=== PATIENT | male | born 1970 | race Caucasian/White ===

== ENCOUNTER 2017-04-07 13:53 | Emergency (ER) ==
[~2017-04-07] VITALS: Ht 182.9 cm; Wt 83.9 kg
[2017-04-07] MEDS ORDERED: LORAZEPAM 0.5 MG TAB PO SCH (17:30)
[2017-04-07] MEDS ORDERED: LORAZEPAM 1 MG TAB PO ONE (17:30)
[2017-04-07 17:40] VITALS: BP 133/91
== END 2017-04-07 17:57 | disposition home or self-care (01) ==
LOC: ER 17:11
DX: F41.9 Anxiety disorder, unspecified (principal); F31.9 Bipolar disorder, unspecified
CPT/HCPCS: 99283

== ENCOUNTER 2018-02-09 23:26 | Emergency (ER) | payer SELFPAY ==
[~2018-02-09] VITALS: Ht 182.9 cm; Wt 83.9 kg
--- OUTSIDE RECORDS SUMMARY | 2018-02-09 23:28 | XMS REPORT | Clinical Summary ---
Author Author [facility] Organization [facility] Address Unknown Phone Unavailable Care Team Providers Care Bond Manager Name Role Phone Asked, No Pcp PCP Unavailable Allergies Comments Active Allergy Reactions Severity Noted Date Penicillins 08/23/2017 Medications End Date Status Medication Sig Dispensed Refills Start Date Active paliperidone (INVEGA Take by 0 ORAL) mouth. Active indomethacin (INDOCIN) 50 Take 50 mg by 0 MG capsule mouth 2 (two) times a day with meals. Active traZODone (DESYREL) 50 MG Take 50 mg by 0 tablet mouth nightly. Active Problems Not on file Encounters Care Team Description Date Type Specialty 12/15/2017 Emergency Emergency Medicine 11/21/2017 Emergency Emergency Medicine Jeff Peters MD Dizziness (Primary Dx); Homelessness 08/23/2017 Emergency Emergency Medicine Jeff Peters MD Sprain of left knee, unspecified ligament, initial encounter (Primary Dx); Acute pain of both knees 08/23/2017 Emergency Emergency Medicine after 02/08/2017 Social History Date Tobacco Use Types Packs/Day Years Used Current Every Day Smoker Cigarettes, 0.5 Cigars Smokeless Tobacco: Never Used Alcohol Use Drinks/Week oz/Week Comments Yes socially Sex Assigned at Date Recorded Not on file Industry Job Start Date Occupation Not on file Not on file Not on file Travel End Travel History Travel Start No recent travel history available. Last Filed Vital Signs Time Taken Vital Sign Reading 12/15/2017 1:18 AM CDT Blood Pressure 94/56 12/15/2017 1:18 AM CDT Pulse 63 12/15/2017 1:18 AM CDT Temperature 36.9 C (98.5 F) 12/15/2017 1:18 AM CDT Respiratory Rate 16 12/15/2017 1:18 AM CDT Oxygen Saturation 95% - Inhaled Oxygen - Concentration 08/23/2017 12:51 PM CDT Weight 83.9 kg (185 lb) 12/15/2017 1:15 AM CDT Height 175.3 cm (5' 9") 08/23/2017 12:51 PM CDT Body Mass Index 27.32 Plan of Treatment Health Maintenance Due Date Last Done Comments INFLUENZA VACCINE 10/29/2017 Procedures Comments Procedure Name Priority Date/Time Associated Diagnosis XR CHEST 2 VW STAT 12/15/2017 4:16 AM CDT ECG 12-LEAD STAT 12/15/2017 1:36 AM CDT ZZESTIMATED GFR STAT 08/23/2017 1:40 PM CDT HC COMPLETE BLD COUNT STAT 08/23/2017 W/AUTO DIFF 1:40 PM CDT TROPONIN STAT 08/23/2017 1:40 PM CDT BASIC METABOLIC PANEL STAT 08/23/2017 1:40 PM CDT ECG 12-LEAD STAT 08/23/2017 1:21 PM CDT after 02/08/2017 Results * XR Chest 2 Vw (12/15/2017 4:16 AM CDT) Narrative Performed At EXAMINATION: XR CHEST 2 VW [facility] CLINICAL HISTORY: Chest painnormal ekg COMPARISON:None. IMPRESSION: The lungs are clear. No pleural effusion or pneumothorax. The cardiomediastinal silhouette is normal. No acute osseous abnormalities. [facility]-[id number] Procedure Note Hm Interface, Radiology Results Incoming - 12/15/2017 4:21 AM CDT EXAMINATION: XR CHEST 2 VW CLINICAL HISTORY: Chest pain normal ekg COMPARISON: None. IMPRESSION: The lungs are clear. No pleural effusion or pneumothorax. The cardiomediastinal silhouette is normal. No acute osseous abnormalities. [facility]-[id number] Performing Organization Address City/State/Zipcode Phone Number [facility] [address] [place] [address] * ECG 12 lead (12/15/2017 1:36 AM CDT) Only the most recent of 2 results within the time period is included. Ventricular rate 70 [facility] Atrial rate 70 [facility] NC interval 150 [facility] QRSD interval 92 [facility] QT interval 392 [facility] QTC interval 423 [facility] P axis 1 42 [facility] QRS axis 1 2 [facility] T wave axis 46 [facility] EKG impression Normal sinus rhythm-Normal [facility] ECG-In automated comparison with ECG of 23-AUG-2017 13:21,-No significant change was found- Performing Organization Address City/[facility]/Zipcode Phone Number [facility] [address] [place] [address] * Estimated GFR (08/23/2017 1:40 PM CDT) GFR Non Af Amer 80 mL/min/1.73 m2 [facility] [place]OMIC MEDICINE GFR Af Amer >90 mL/min/1.73 m2 [facility] [place] Comment: PATHOLOGY AND Chronic kidney disease: <60 GENOMIC MEDICINE mL/min/1.73m2 Kidney failure: <15 mL/min/1.73m2 The estimated GFR is calculated from the IDMS-traceable Modification of Diet in Renal Disease Equation. The accuracy of the calculation is poor when the creatinine is normal. Calculated values >90 mL/min/1.73m2 are not reported. This equation has not been validated in children (<18 years), women, the elderly (>70 years), or ethnic groups other than Caucasians and Americans. Specimen Plasma specimen Performing Organization Address [facility] Phone Number [place] [phone] [place] [address] PATHOLOGY AND [employer] [facility] * Troponin (08/23/2017 1:40 PM CDT) Troponin <0.01 0.00 - 0.60 ng/mL [facility] [place] Comment: PATHOLOGY AND 0.11 - 1.49 GENOMIC MEDICINE ng/mlMay indicate increased risk of acute coronary syndrome. >=1.5 ng/ml Consistent with acute myocardial infarction. The diagnostic value of a single normal or non-diagnostic result is questionable.Serial samples at 2-6 hour intervals are required to rule out acute myocardial injury. Specimen Plasma specimen Performing Organization Address City/[facility] Phone Number [facility] [place] [address] [place] [address] PATHOLOGY AND GENOMIC MEDICINE * CBC with platelet and differential (08/23/2017 1:40 PM CDT) WBC 8.8 4.2 - 11.0 k/uL [facility] [place]OLOGY AND GENOMIC MEDICINE RBC 3.93 (L) 4.04 - 5.86 m/uL [facility] [place]OLOGY AND GENOMIC MEDICINE HGB 12.2 (L) 13.0 - 17.3 g/dL [facility] [place]OLOGY AND GENOMIC MEDICINE HCT 36.0 34.0 - 45.0 % [facility] [place]OLOGY AND GENOMIC MEDICINE MCV 91.6 80.0 - 98.0 fL [facility] [place]OLOGY AND GENOMIC MEDICINE MCH 31.0 27.0 - 34.0 pg [facility] [place]OLOGY AND GENOMIC MEDICINE MCHC 33.9 31.5 - 36.5 g/dL [facility] [place] PATHOLOGY AND GENOMIC MEDICINE RDW - SD 42.4 37.0 - 51.0 fL [facility] [place]OLOGY AND GENOMIC MEDICINE MPV 8.9 7.4 - 10.4 fL [facility] [place]OLOGY AND GENOMIC MEDICINE Platelet count 224 150 - 400 k/uL [facility] [place]OLOGY AND GENOMIC MEDICINE Nucleated RBC 0.00 /100 WBC [facility] [place] PATHOLOGY AND GENOMIC MEDICINE Neutrophils 66.4 (H) 36.0 - 66.0 % [facility] [place]OLOGY AND GENOMIC MEDICINE Lymphocytes 21.0 (L) 24.0 - 44.0 % [facility] [place]OLOGY AND GENOMIC MEDICINE Monocytes 10.3 (H) 0.0 - 6.0 % [facility] [place]OLOGY AND GENOMIC MEDICINE Eosinophils 1.8 0.0 - 6.0 % [facility] [place] [facility] PATHOLOGY AND GENOMIC MEDICINE Basophils 0.3 0.0 - 1.2 % [facility] [place]OLOGY AND GENOMIC MEDICINE Immature granulocytes 0.2 0.0 - 1.0 % [facility] [place]OLOGY AND GENOMIC MEDICINE Specimen Blood Performing Organization Address City/State/Zipcode Phone Number [facility] [address] [place] [address] PATHOLOGY AND GENOMIC MEDICINE * Basic metabolic panel (08/23/2017 1:40 PM CDT) Sodium 134 (L) 135 - 150 mEq/L [facility] [place]OLOGY AND GENOMIC MEDICINE Potassium 4.0 3.5 - 5.0 mEq/L [facility] [place] PATHOLOGY AND GENOMIC MEDICINE Chloride 96 (L) 100 - 109 mEq/L [facility] [place] PATHOLOGY AND GENOMIC MEDICINE CO2 28 24 - 32 mmol/L [facility] DEPARTMENT OF PATHOLOGY AND GENOMIC MEDICINE Anion gap 10@ANIO 7 - 15 mEq/L [facility] [place] [facility] PATHOLOGY AND GENOMIC MEDICINE BUN 9 7 - 18 mg/dL [facility] [place]OLOGY AND GENOMIC MEDICINE Creatinine 1.0 0.8 - 1.5 mg/dL [facility] [place]OLOGY AND GENOMIC MEDICINE Glucose 105 (H) 65 - 100 mg/dL [facility] [place]OLOGY AND GENOMIC MEDICINE Calcium 9.3 8.6 - 10.7 mg/dL [facility] [place]OLOGY AND GENOMIC MEDICINE Specimen Plasma specimen Performing Organization Address City/State/Zipcode Phone Number [facility] [place] [address] [place] [address] PATHOLOGY AND GENOMIC MEDICINE after 02/08/2017 Advance Directives Patient has advance care planning documents on file. For more information, brittney juan contact: Tod Noguera [address] [place] [address]
--- OUTSIDE RECORDS SUMMARY | 2018-02-09 23:29 | XMS REPORT | Clinical Summary ---
Author Author [facility] Organization [facility] Address Unknown Phone Unavailable Care Team Providers Care Explosives Engineer Name Role Phone Sonya Gong MD PCP Allergies Active Allergy Reactions Severity Noted Date Comments Penicillin Other 04/23/2017 He had reaction as a child, not sure what type of reaction. Current Medications Prescription Sig. Disp. Refills Start End Date Status Date traZODone (DESYREL) 100 Take 100 mg by mouth at Active mg tablet bedtime nightly. Hydrocortisone 1 % Apply to affected area 2 10 Packet 0 05/02/19 Active CrPkIndications: times daily. 18 Seborrheic dermatitis, unspecified multivitamin Take 1 tablet by mouth 30 tablet 0 05/02/19 Active tabletIndications: daily. 18 Healthcare maintenance acetaminophen (TYLENOL) Take 1 tablet by mouth 30 tablet 0 06/08/19 Active 500 mg tabletIndications: every 6 hours as needed 18 Elbow pain, right for Pain. cetirizine (ZYRTEC) 10 mg Take 1 tablet by mouth 30 tablet 0 08/01/19 Active tabletIndications: daily. 18 Tobacco abuse disorder ciclesonide (ZETONNA) 37 Use 1 Warwick in each 6.1 g 0 08/01/19 Active mcg/actuation nasal HFA nostril daily. 18 inhalerIndications: Tobacco abuse disorder paliperidone (INVEGA Inject 0.5 mL 0.5 mL 0 08/01/19 Active SUSTENNA) 78 mg/0.5 mL intramuscularly once for 18 Syrg 1 dose Per psychiatry takes once a month. naproxen (NAPROSYN) 375 Take 1 tablet by mouth 2 40 tablet 1 08/01/19 Active mg tabletIndications: times daily (with meals). 18 Polyarthralgia cyclobenzaprine Take 1 tablet by mouth 20 tablet 0 08/07/19 Active (FLEXERIL) 10 mg nightly at bedtime as 18 tabletIndications: needed (pain). Plantar fasciitis, bilateral multivitamin Take 1 tablet by mouth 30 tablet 0 08/28/19 Active tabletIndications: daily. 18 Homelessness acetaminophen-codeine Take 1 tablet by mouth 10 tablet 0 08/31/19 Active (TYLENOL/CODEINE #3) every 4 hours as needed 18 300-30 mg per for Pain. tabletIndications: Closed fracture of tooth, initial encounter ibuprofen (MOTRIN) 600 mg Take 1 tablet by mouth 30 tablet 0 09/06/19 Active tabletIndications: every 8 hours as needed 18 Dentalgia for Pain. mirtazapine (REMERON) 15 Take 15 mg by mouth at 08/01/19 Discontin mg tablet bedtime nightly. 18 ued ziprasidone (GEODON) 80 Take 40 mg by mouth 2 08/01/19 Discontin mg capsule times daily (with meals) 18 ued . hydrocortisone 1 % Apply to affected area 2 28.35 g 0 12/05/19 08/01/19 Discontin topical creamIndications: times daily. 16 18 ued Rash and other nonspecific skin eruption vitamin 27-0.8 Take 1 tablet by mouth 100 tablet 0 02/13/20 08/01/19 Discontin mg Tab tabletIndications: daily. 16 18 ued Homelessness cyclobenzaprine Take 1 tablet by mouth 3 30 tablet 0 02/15/20 08/01/19 Discontin (FLEXERIL) 10 mg times daily as needed for 16 18 ued tabletIndications: Left Muscle Spasms. shoulder strain, initial encounter bacitracin 500 unit/gram Apply 1 Packet to 5 Packet 0 02/28/20 08/01/19 Discontin PackIndications: affected area 3 times 16 18 ued Carbuncle and furuncle daily. ketoconazole (NIZORAL) 2 Apply to red scaly areas 60 g 2 03/08/20 08/01/19 Discontin % topical daily.. 16 18 ued creamIndications: Seborrhea metroNIDAZOLE Apply to affected area 2 45 g 2 03/08/20 08/01/19 Discontin (METROCREAM) 0.75 % times daily. 16 18 ued topical creamIndications: Rosacea hydrogen peroxide 3 % Apply to affected area 2 120 mL 0 03/26/20 08/01/19 Discontin external times daily Mix with 1/2 16 18 ued solutionIndications: water and 1/2 peroxide Dental caries ans swish and spit 2 times daily. ibuprofen (MOTRIN) 400 mg Take 1 tablet by mouth 40 tablet 0 03/26/20 06/08/19 Discontin tabletIndications: Dental every 6 hours as needed 16 18 ued caries for Pain. ibuprofen (MOTRIN) 800 mg Take 1 tablet by mouth 20 tablet 0 03/28/20 06/08/19 Discontin tabletIndications: every 8 hours as needed 16 18 ued Chronic dental infection for Pain. cetirizine (ZYRTEC) 10 mg Take 1 tablet by mouth 30 tablet 0 07/24/19 08/01/19 Discontin tabletIndications: Acute daily. 17 18 ued sinusitis, unspecified, Upper respiratory tract infection, unspecified type, Cough, Nasal congestion, Tobacco abuse disorder ciclesonide (ZETONNA) 37 Use 1 Warwick in each 6.1 g 0 07/24/19 08/01/19 Discontin mcg/actuation nasal HFA nostril daily. 17 18 ued inhalerIndications: Acute sinusitis, unspecified, Upper respiratory tract infection, unspecified type, Cough, Nasal congestion, Tobacco abuse disorder Hydrocortisone 1 % Apply to affected area 2 12 Packet 0 04/23/19 05/02/19 Discontin CrPkIndications: times daily. 18 18 ued Seborrheic dermatitis, unspecified vortioxetine (TRINTELLIX) Take by mouth every 08/01/19 Discontin 10 mg Tab morning. 18 ued hydrOXYzine (ATARAX) 50 Take 50 mg by mouth 3 08/01/19 Discontin mg tablet times daily as needed for 18 ued Itching. acetaminophen-codeine Take 1 tablet by mouth 20 tablet 0 05/21/19 05/25/19 (TYLENOL/CODEINE #3) every 4 hours as needed 18 18 300-30 mg per for up to 4 days for tabletIndications: Facial Pain. injury, initial encounter ibuprofen (MOTRIN) 600 mg Take 1 tablet by mouth 30 tablet 0 06/08/19 08/07/19 Discontin tabletIndications: Elbow every 8 hours as needed 18 18 ued pain, right for Pain. indomethacin (INDOCIN) 50 Take 1 capsule by mouth 2 30 capsule 0 08/07/19 09/06/19 Discontin mg capsuleIndications: times daily as needed for 18 18 ued Plantar fasciitis, Pain. bilateral clindamycin (CLEOCIN HCL) Take 1 capsule by mouth 3 30 capsule 0 09/06/19 09/16/19 300 mg times daily for 10 days. 18 18 capsuleIndications: Dentalgia chlorhexidine (PERIDEX) Swish with 1/2 oz of 473 mL 0 09/06/19 09/20/19 0.12 % mouth solution in mouth for 30 18 18 washIndications: seconds and spit. Use Dentalgia twice daily.. Active Problems Problem Noted Date Hyperlipidemia 07/31/2017 Anemia 07/31/2017 Elevated LFTs 07/31/2017 Environmental allergies 07/31/2017 Tobacco abuse disorder 07/31/2017 Elbow pain, right 06/06/2017 Facial trauma 05/21/2017 Hyponatremia 05/13/2017 Screening for depression 04/23/2017 Homelessness 11/28/2015 Bipolar disorder, current episode mixed, moderate Tremors of nervous system Encounters Date Type Specialty Care Team Description 11/05/2017 Emergency Emergency Medicine 10/08/2017 Emergency Emergency Medicine - 10/09/2017 09/05/2017 Same Day Family Practice Berkley Cadena NP Dentalgia (Primary Dx) iLzz Moy PA 09/05/2017 Nurse Triage Anderson Aceves RN 08/30/2017 Emergency Emergency Medicine Yvon Bee MD Closed fracture of tooth, initial encounter (Primary Dx) 08/30/2017 Pharmacy Visit 08/28/2017 Nurse Triage Anderson Aceves RN 08/27/2017 Clinical Case Social Work Aracelis Goldsmith Mgt 08/27/2017 Clinical Case Social Work Raphael Herrera Mgt 08/27/2017 Office Visit Family Practice Enedelia Reis Chronic pain of both knees (Primary Dx); Homelessness 08/15/2017 Pharmacy Visit 08/08/2017 Emergency Emergency Medicine - 08/09/2017 08/07/2017 Telephone Chloe Jaffe Pre-clinic Chart Review; Transportation 08/06/2017 Office Visit Family Practice Marlon Yoder MD Plantar fasciitis, bilateral (Primary Dx) 08/06/2017 Emergency Emergency Medicine Letty Saenz PA 08/06/2017 Pharmacy Visit 08/01/2017 Pharmacy Visit 07/31/2017 Office Visit Family Practice Sonya Gong MD Elevated LFTs (Primary Dx); Anemia, unspecified type; Hyperlipidemia, unspecified hyperlipidemia type; Tobacco abuse disorder; Environmental allergies; Chronic pain of right knee; Pain in both feet; Polyarthralgia; Preventative health care 07/31/2017 Orders Only [facility] Sonya Gong MD Preventative health care; Pain in both feet 07/31/2017 Pharmacy Visit 06/06/2017 Emergency Emergency Medicine Yanni Mcrae MD Elbow pain, right - (Primary Dx) 06/07/2017 05/23/2017 Office Visit [facility] Devin Patterson NP Abrasion of lip, initial encounter (Primary Dx) 05/20/2017 Emergency Emergency Medicine Chato Stallworth MD Avulsion of multiple - teeth due to trauma, 05/21/2017 initial encounter (Primary Dx); Facial injury, initial encounter 05/17/2017 Emergency Emergency Medicine - 05/18/2017 05/15/2017 Clinical Case Social Work Ailyn Mary Mgt 05/13/2017 Emergency Emergency Medicine Gerardo Glaser, [place] of nervous system ResidentMD (Primary Dx); Amos Arreaga MD Anxiety; Bipolar disorder, current episode mixed, moderate; Hyponatremia 05/09/2017 Office Visit Internal Medicine Anthony Bell ResidentMD NO SHOW ENCOUNTER (Primary Dx) 05/02/2017 Office Visit [facility] Enedelia Reis Seborrheic dermatitis, unspecified (Primary Dx); Homelessness; Healthcare maintenance 04/24/2017 Telephone Social Work Raphael Herrera Appointment Related Questions (reminder) 04/23/2017 Clinical Case Social Work Raphael Herrera Mgt 04/23/2017 Office Visit [facility] Enedelia Reis Seborrheic dermatitis, unspecified (Primary Dx); Screening for diabetes mellitus (DM); Healthcare maintenance 04/07/2017 Emergency Emergency Medicine Adina Price MD Bipolar disorder, current - episode mixed, moderate 04/08/2017 (Primary Dx) after 11/04/2016 Immunizations Name Dates Previously Given Next Due Influenza Vaccine 01/10/2016 PPD 11/28/2015 PPV 23 Pneumococcal 07/23/2016 (Deferred: Contraindication) Polysaccaride Tdap Tetanus, diphtheria, 11/30/2015 acellular pertussis Vaccine Family History Medical History Relation Name Comments Diabetes Father Heart Father Hypertension Father Stroke Father Cancer Mother liver Relation Name Status Comments Brother Alive Father Alive Mother cancer (Age 45+) Son Alive Social History Tobacco Use Types Packs/Day Years Used Date Former Smoker Cigarettes 0 9 Quit: 11/13/2015 Smokeless Tobacco: Former Chew Quit: User 11/13/2015 Tobacco Cessation: Counseling Given: No Alcohol Use Drinks/Week oz/Week Comments Yes Last time used 09/09/15 Alcohol,Beer Sex Assigned at Date Recorded Not on file Last Filed Vital Signs Vital Sign Reading Time Taken Blood Pressure 134/87 11/05/2017 3:25 AM CDT Pulse 100 11/05/2017 3:25 AM CDT Temperature 36.7 C (98.1 F) 11/05/2017 3:25 AM CDT Respiratory Rate 20 11/05/2017 3:25 AM CDT Oxygen Saturation 97% 11/05/2017 3:25 AM CDT Inhaled Oxygen - - Concentration Weight 82.6 kg (182 lb) 09/05/2017 4:21 PM CDT Height 175.3 cm (5' 9") 09/05/2017 4:21 PM CDT Body Mass Index 26.88 09/05/2017 4:21 PM CDT Plan of Treatment Date Type Specialty Care Team Description 11/05/2017 Office Visit Dentistry Elena Almanzar, [facility] [id number] [place] [address] [phone] Goals Patient Goal Type Goal Recent Progress Patient-Stat Author ed? Weight Weight (lb) < 200 lb 82.6 kg (182 lb) Estela Duarte (90.7 kg) (09/05/2017 4:21 PM CDT) Zehra Results * XRAY ELBOW 2 VIEWS MIN (06/06/2017 2:15 PM) Specimen Performing Laboratory SMS Impressions IMPRESSION: There is a joint effusion without definite bony fracture. Follow up elbow series would be of benefit. If the report is "FINALIZED" it indicates that the attending/staff radiologist has reviewed the images and agrees with the resident's interpretation. I have reviewed the study and agree with the findings in this report. Signed By: Eric Cabezas DO, 06/06/2017 2:43 PM Narrative EXAMINATION: XRAY ELBOW 2 VIEWS MIN SIDE: Right INDICATION: R elbow pain COMPARISON: None FINDINGS: BONES: No acute fracture.Spurring of the olecranon. JOINTS: No malalignment. SOFT TISSUES: Uplifted anterior fat pad c/w an effusion. Procedure Note Interface, Rad/Mammog In - 06/06/2017 2:48 PM PRODUCTION LEADER EXAMINATION: XRAY ELBOW 2 VIEWS MIN SIDE: Right INDICATION: R elbow pain COMPARISON: None FINDINGS: BONES: No acute fracture. Spurring of the olecranon. JOINTS: No malalignment. SOFT TISSUES: Uplifted anterior fat pad c/w an effusion. IMPRESSION IMPRESSION: There is a joint effusion without definite bony fracture. Follow up elbow series would be of benefit. If the report is "FINALIZED" it indicates that the attending/staff radiologist has reviewed the images and agrees with the resident's interpretation. I have reviewed the study and agree with the findings in this report. Signed By: Eric Cabezas DO, 06/06/2017 2:43 PM * CT MAXILLOFACIAL W/O CONTRAST (05/21/2017 1:00 AM) Specimen Performing Laboratory SMS Impressions IMPRESSION: 1.Tiny age-indeterminate left nasal fracture. 2.Multiple untreated dental caries. 3.Impacted right maxillary third molar. This EPIC radiology report is a preliminary resident dictation until finalized by an attending.Changes to this preliminary report may occur in an additional preliminary or finalized version. Dictated By: Jann Reyes MD, 05/21/2017 1:29 AM I have reviewed the study and agree with the findings in this report. Signed By: Sim Friedman MD, 05/21/2017 1:46 AM Narrative EXAM: CT FACIAL BONES WITHOUT CONTRAST DATE: 05/21/2017 1:01 AM INDICATION: Facial trauma COMPARISON: None. TECHNIQUE: Volumetric CT acquisition of the facial bones without contrast. Axial, coronal and sagittal reconstructions. IV contrast: None. DLP: 902 mGy-cm FINDINGS: Bones: Tiny osseous fragment is seen adjacent to the left nasal bone, representing a small age-indeterminate fracture. No other facial fracture identified. The mandible is intact, and the temporomandibular joints are well-aligned. The paranasal sinuses and mastoid air cells are clear. Soft tissues: No abnormality of the globes is seen. There is no intraconal hematoma. No radiopaque foreign body. Atherosclerotic calcifications are seen in the bilateral carotid siphons. Cavum septum pellucidum and vergae are incidentally noted. The visualized brain parenchyma is otherwise within normal limits. Dentition: The right maxillary third molar is impacted, with its roots in the maxillary sinus. Numerous untreated caries are seen, particularly in the left mandibular molars. Procedure Note Interface, Rad/Mammog In - 05/21/2017 1:51 AM PRODUCTION LEADER EXAM: CT FACIAL BONES WITHOUT CONTRAST DATE: 05/21/2017 1:01 AM INDICATION: Facial trauma COMPARISON: None. TECHNIQUE: Volumetric CT acquisition of the facial bones without contrast. Axial, coronal and sagittal reconstructions. IV contrast: None. DLP: 902 mGy-cm FINDINGS: Bones: Tiny osseous fragment is seen adjacent to the left nasal bone, representing a small age-indeterminate fracture. No other facial fracture identified. The mandible is intact, and the temporomandibular joints are well-aligned. The paranasal sinuses and mastoid air cells are clear. Soft tissues: No abnormality of the globes is seen. There is no intraconal hematoma. No radiopaque foreign body. Atherosclerotic calcifications are seen in the bilateral carotid siphons. Cavum septum pellucidum and vergae are incidentally noted. The visualized brain parenchyma is otherwise within normal limits. Dentition: The right maxillary third molar is impacted, with its roots in the maxillary sinus. Numerous untreated caries are seen, particularly in the left mandibular molars. IMPRESSION IMPRESSION: 1. Tiny age-indeterminate left nasal fracture. 2. Multiple untreated dental caries. 3. Impacted right maxillary third molar. This [facility] radiology report is a preliminary resident dictation until finalized by an attending. Changes to this preliminary report may occur in an additional preliminary or finalized version. Dictated By: Jann Reyes MD, 05/21/2017 1:29 AM I have reviewed the study and agree with the findings in this report. Signed By: Sim Friedman MD, 05/21/2017 1:46 AM * BASIC METABOLIC PANEL (05/13/2017 7:00 PM) Component Value Ref Range CO2 26.8 21 - 32 mmol/L Chloride 97 (L) 98 - 107 mmol/L Potassium 3.8 3.50 - 5.10 mmol/L Sodium 132 (L) 136 - 145 mmol/L Glucose 132 (H) 70 - 99 mg/dL Urea Nitrogen 10 7 - 18 mg/dL Creatinine 0.89 0.60 - 1.30 mg/dL Anion Gap 8.2 Calcium 8.7 8.50 - 10.20 mg/dL GFR, Estimated >60 mL/min/1.73 m2 GFR, Estim, Afr-Am >60 mL/min/1.73 m2 Specimen Performing Laboratory Blood MISYS * BMP POC (05/13/2017 12:30 PM) Component Value Ref Range CO2 POC 25 21 - 32 mmol/L Chloride POC 92 (L) 98 - 107 mmol/L Potassium POC 4.2 3.50 - 5.10 mmol/L Sodium POC 128 (L) 136 - 145 mmol/L Glucose POC 92 74 - 106 mg/dL Urea Nitrogen POC 9 7 - 18 mg/dL Creatinine POC 0.8 0.6 - 1.3 mg/dL Calcium Ionized POC 1.16 1.15 - 1.29 mmol/L Hemoglobin POC 14.3 14.0 - 18.0 g/dL Hematocrit POC 42.0 40.0 - 54.0 % GFR, Estimated >60 mL/min/1.73 m2 GFR, Estim, Afr-Am >60 mL/min/1.73 m2 Specimen Performing Laboratory MISYS * CBC/DIFF (05/13/2017 12:20 PM) Component Value Ref Range WBC 9.5 4.5 - 12.0 K/uL RBC 4.24 (L) 4.60 - 6.20 M/uL Hemoglobin 13.3 (L) 14.0 - 18.0 g/dL Hematocrit 38.4 (L) 40.0 - 54.0 % MCV 91 82 - 92 fL MCH 31.4 (H) 27.0 - 31.0 pg MCHC 34.6 32.0 - 36.0 g/dL RDW 39.9 35.1 - 43.9 fL Platelet 266 150 - 400 K/uL Mean Platelet Volume 8.6 (L) 9.4 - 12.4 fL Percent NRBC 0.0 Absolute NRBC 0.00 Neutrophil 70.9 (H) 34.0 - 67.9 % Lymphocyte 19.1 (L) 21.8 - 50.0 % Monocyte 8.9 5.3 - 12.0 % Eosinophil 0.3 (L) 0.8 - 5.0 % Basophil 0.4 0.2 - 1.2 % Pct Immat Gran 0.4 0.0 - 0.5 Neutrophil, Abs 6.74 (H) 1.78 - 5.36 K/uL Lymphocyte, Abs 1.82 1.32 - 3.57 K/uL Monocyte, Abs 0.85 (H) 0.30 - 0.82 K/uL Eosinophil, Abs 0.03 (L) 0.04 - 0.54 K/uL Basophil, Abs 0.04 0.01 - 0.08 K/uL Absol Immat Gran 0.04 (H) 0.00 - 0.03 K/uL Specimen Performing Laboratory MISYS * POC GLUCOSE-FQHC MANUALLY ENTERED (04/23/2017 10:59 AM) Component Value Ref Range GLUCOSE 91 Specimen Performing Laboratory Blood * UA CHEMISTRIES (04/07/2017 9:07 PM) Component Value Ref Range Color Colorless Clarity Clear Spec Ambia 1.002 1.001 - 1.035 pH 7.0 5 - 8 Protein Negative NEG Glucose Negative NEG Ketone Negative NEG Bilirubin Negative NEG Nitrate Negative NEG Urobilinogen <1.0 0.2 - 1.0 EU/dL Leukocyte Negative NEG Blood Negative NEG Specimen Performing Laboratory Urine MISYS * URINE DRUG SCREEN (04/07/2017 9:07 PM) Component Value Ref Range Amphetamine Negative NEG Comment: Calibrated Standard: D-Methamphetamine Positive if urine level >ub=6134 ng/mL Barbiturate Negative NEG Comment: Calibrated Standard: Secobarbital Positive if urine level is >zo=180 ng/mL Benzodiazepine Negative NEG Comment: Calibrated Standard: Lormethazepam Positive if urine level is >wy=430 ng/mL Cannabinoid Negative NEG Comment: Calibrated Standard: 11 nor-delta(9)-THC carboxylic a Positive if urine level >or=50 Cocaine Negative NEG Comment: Calibrated Standard: Benzoylecgonine Positive if urine level >dx=952 Opiate, Ur Negative NEG Comment: Calibrated Standard: Morphine Positive if urine level >ye=408 PCP Negative NEG Comment: Calibrated Standard: Phencyclidine Positive if urine level >or=25 Urine Toxicology Screen results are to be used only for Medical purposes. Specimen Performing Laboratory Urine MISYS after 11/04/2016
--- OUTSIDE RECORDS SUMMARY | 2018-02-09 23:29 | XMS REPORT | Continuity of Care Document ---
Author Author [facility] Interface Address Unknown Phone Unavailable Problems Problem Status Onset Date Classification Date Reported Comments Source Pain in both lower extremities Active 11/28/2017 Problem 12/13/2017 [facility] Hyperlipidemia Active 07/31/2017 Problem 12/13/2017 [facility] Anemia Active 07/31/2017 Problem 12/13/2017 [facility] Elevated LFTs Active 07/31/2017 Problem 12/13/2017 [facility] Environmental allergies Active 07/31/2017 Problem 12/13/2017 [facility] Tobacco abuse disorder Active 07/31/2017 Problem 12/13/2017 [facility] Elbow pain, right Active 06/06/2017 Problem 12/13/2017 [facility] Facial trauma Active 05/21/2017 Problem 12/13/2017 [facility] Hyponatremia Active 05/13/2017 Problem 12/13/2017 [facility] Screening for depression Active 04/23/2017 Problem 12/13/2017 [facility] Homelessness Active 11/28/2015 Problem 12/13/2017 [facility] Bipolar disorder, current episode mixed, moderate Active Problem 12/13/2017 [facility] Tremors of nervous system Active Problem 12/13/2017 [facility] Encounter for medical screening examination Active Problem 12/13/2017 [facility] Medications Medication Details Route Status Patient Instructions Ordering Provider Order Date Source indomethacin (INDOCIN) 50 mg capsule Take 1 capsule by mouth 2 times daily as needed for Pain. Oral Active 12/05/2017 [facility] cyclobenzaprine (FLEXERIL) 10 mg tablet Take 1 tablet by mouth nightly at bedtime as needed (pain). Oral Active 12/05/2017 [facility] Naprosyn 500 Mg Tablet Take 1 tablet by mouth 2 times daily (with meals). Oral Active 12/02/2017 [facility] multivitamin tablet Take 1 tablet by mouth daily. Oral Active 12/02/2017 [facility] ibuprofen (MOTRIN) 800 mg tablet Take 1 tablet by mouth every 8 hours as needed for Pain. Oral No Longer Active 11/28/2017 [facility] Cleocin Hcl 300 Mg Capsule Take 1 capsule by mouth 3 times daily for 10 days. Oral No Longer Active 09/05/2017 [facility] ibuprofen (MOTRIN) 600 mg tablet Take 1 tablet by mouth every 8 hours as needed for Pain. Oral No Longer Active 09/05/2017 [facility] Peridex 0.12 % Mouthwash Swish with 1/2 oz of solution in mouth for 30 seconds and spit. Use twice daily.. No Longer Active 09/05/2017 [facility] Tylenol-Codeine #3 300 Mg-30 Mg Tablet Take 1 tablet by mouth every 4 hours as needed for Pain. Oral Active 08/30/2017 [facility] multivitamin tablet Take 1 tablet by mouth daily. Oral No Longer Active 08/27/2017 [facility] indomethacin (INDOCIN) 50 mg capsule Take 1 capsule by mouth 2 times daily as needed for Pain. Oral No Longer Active 08/06/2017 [facility] cyclobenzaprine (FLEXERIL) 10 mg tablet Take 1 tablet by mouth nightly at bedtime as needed (pain). Oral No Longer Active 08/06/2017 [facility] mirtazapine (REMERON) 15 mg tablet Take 15 mg by mouth at bedtime nightly. Oral No Longer Active 07/31/2017 [facility] ziprasidone (GEODON) 80 mg capsule Take 40 mg by mouth 2 times daily (with meals) . Oral No Longer Active 07/31/2017 [facility] vortioxetine (TRINTELLIX) 10 mg Tab Take by mouth every morning. Oral No Longer Active 07/31/2017 [facility] hydrOXYzine (ATARAX) 50 mg tablet Take 50 mg by mouth 3 times daily as needed for Itching. Oral No Longer Active 07/31/2017 [facility] Zyrtec 10 Mg Tablet Take 1 tablet by mouth daily. Oral Active 07/31/2017 [facility] Zetonna 37 McG/Actuation Nasal Hfa Inhaler Use 1 [place] in each nostril daily. Active 07/31/2017 [facility] Invega Sustenna 78 Mg/0.5 Ml Intramuscular Syringe Inject 0.5 mL intramuscularly once for 1 dose Per psychiatry takes once a month. Intramuscular Active 07/31/2017 [facility] Naprosyn 375 Mg Tablet Take 1 tablet by mouth 2 times daily (with meals). Oral No Longer Active 07/31/2017 [facility] ibuprofen (MOTRIN) 600 mg tablet Take 1 tablet by mouth every 8 hours as needed for Pain. Oral No Longer Active 06/07/2017 [facility] acetaminophen (TYLENOL) 500 mg tablet Take 1 tablet by mouth every 6 hours as needed for Pain. Oral Active 06/07/2017 [facility] Tylenol-Codeine #3 300 Mg-30 Mg Tablet Take 1 tablet by mouth every 4 hours as needed for up to 4 days for Pain. Oral No Longer Active 05/21/2017 [facility] Hydrocortisone 1 % CrPk Apply to affected area 2 times daily. Topical Active 05/02/2017 [facility] multivitamin tablet Take 1 tablet by mouth daily. Oral Active 05/02/2017 [facility] Hydrocortisone 1 % CrPk Apply to affected area 2 times daily. Topical No Longer Active 04/23/2017 [facility] Zyrtec 10 Mg Tablet Take 1 tablet by mouth daily. Oral No Longer Active 07/23/2016 [facility] Zetonna 37 McG/Actuation Nasal Hfa Inhaler Use 1 [place] in each nostril daily. No Longer Active 07/23/2016 [facility] ibuprofen (MOTRIN) 800 mg tablet Take 1 tablet by mouth every 8 hours as needed for Pain. Oral No Longer Active 03/28/2016 [facility] hydrogen peroxide 3 % external solution Apply to affected area 2 times daily Mix with 1/2 water and 1/2 peroxide ans swish and spit 2 times daily. Topical No Longer Active 03/26/2016 [facility] ibuprofen (MOTRIN) 400 mg tablet Take 1 tablet by mouth every 6 hours as needed for Pain. Oral No Longer Active 03/26/2016 [facility] ketoconazole (NIZORAL) 2 % topical cream Apply to red scaly areas daily.. No Longer Active 03/08/2016 [facility] Metrocream 0.75 % Topical Apply to affected area 2 times daily. Topical No Longer Active 03/08/2016 [facility] bacitracin 500 unit/gram Pack Apply 1 Packet to affected area 3 times daily. Topical No Longer Active 02/28/2016 [facility] cyclobenzaprine (FLEXERIL) 10 mg tablet Take 1 tablet by mouth 3 times daily as needed for Muscle Spasms. Oral No Longer Active 02/15/2016 [facility] vitamin 27-0.8 mg Tab tablet Take 1 tablet by mouth daily. Oral No Longer Active 02/13/2016 [facility] hydrocortisone 1 % topical cream Apply to affected area 2 times daily. Topical No Longer Active 12/05/2015 [facility] traZODone (DESYREL) 100 mg tablet Take 100 mg by mouth at bedtime nightly. Oral Active [facility] Allergies, Adverse Reactions, Alerts Substance Category Reaction Severity Reaction type Status Date Reported Comments Source Penicillin Other Propensity to adverse reactions to drug Active 04/23/2017 [facility] Immunizations Immunization Date Given Site Status Last Updated Comments Source PPV 23 Pneumococcal Polysaccaride 07/23/2016 Not Given Deferred: Contraindication [facility] Influenza Vaccine 01/10/[address] [facility] Tdap Tetanus, diphtheria, acellular pertussis Vaccine 11/30/[address] [facility] PPD 11/28/[address] [facility] Results Order Name Results Value Reference Range Date Interpretation Comments Source [facility] POC CO2 POC 28 mmol/L 21 - 32 11/05/2017 [facility] POC Chloride POC 94 mmol/L 98 - 107 11/05/2017 [facility] POC Potassium POC 3.5 mmol/L 3.5 - 5.1 11/05/2017 [facility] POC Sodium POC 134 mmol/L 136 - 145 11/05/2017 [facility] POC Glucose POC 133 mg/dL 74 - 106 11/05/2017 [facility] POC Urea Nitrogen POC 4 mg/dL 7 - 18 11/05/2017 [facility] POC Creatinine POC 0.9 mg/dL 0.6 - 1.3 11/05/2017 [facility] POC Calcium Ionized POC 1.16 mmol/L 1.15 - 1.29 11/05/2017 [facility] POC Hemoglobin POC 14.3 g/dL 14 - 18 11/05/2017 [facility] POC Hematocrit POC 42.0 % 40 - 54 11/05/2017 [facility] POC GFR, Estimated >60 mL/min/1.73 m2 11/05/2017 [facility] POC GFR, Estim, Afr-Am >60 mL/min/1.73 m2 11/05/2017 [facility] POC Lab Interpretation Abnormal 11/05/2017 [facility] XRAY ELBOW 2 VIEWS MIN <p>IMPRESSION: </p><p>There is a joint effusion without definite bony fracture.</p><p>Follow up elbow series would be of benefit.</p><p> </p><p>If the report is "FINALIZED" it indicates that the attending/staff</p><p>radiologist has reviewed the images and agrees with the resident's</p><p>interpretation.</p><p> </p><p>I have reviewed the study and agree with the findings in this report.</p><p> </p><p>Signed By: Eric Cabezas DO, 06/06/2017 2:43 PM</p><p> </p> IMPRESSION: There is a joint effusion without definite bony fracture. Follow up elbow series would be of benefit. If the report is "FINALIZED" it indicates that the attending/staff radiologist has reviewed the images and agrees with the resident's interpretation. I have reviewed the study and agree with the findings in this report. Signed By: Eric Cabezas DO, 06/06/2017 2:43 PM 06/06/2017 [facility] XRAY ELBOW 2 VIEWS MIN <p>EXAMINATION: XRAY ELBOW 2 VIEWS MIN</p><p>SIDE: Right</p><p>INDICATION: R elbow pain </p><p>COMPARISON: None</p><p> </p><p>FINDINGS:</p><p> </p><p>BONES:</p><p>No acute fracture.Spurring of the olecranon.</p><p> </p><p>JOINTS:</p><p>No malalignment.</p><p> </p><p>SOFT TISSUES:</p><p>Uplifted anterior fat pad c/w an effusion.</p><p> </p> EXAMINATION: XRAY ELBOW 2 VIEWS MIN SIDE: Right INDICATION: R elbow pain COMPARISON: None FINDINGS: BONES: No acute fracture.Spurring of the olecranon. JOINTS: No malalignment. SOFT TISSUES: Uplifted anterior fat pad c/w an effusion. 06/06/2017 [facility] XRAY ELBOW 2 VIEWS MIN <p styleCode="header">Interface, Rad/Mammog In - 06/06/2017 2:48 PM RADIO TELEVISION TECHNICAL DIRECTOR</p><p><span>EXAMINATION: XRAY ELBOW 2 VIEWS MIN</span>
<span>SIDE: Right</span>
<span>INDICATION: R elbow pain </span>
<span>COMPARISON: None</span>
<span> </span>
<span>FINDINGS:</span>

<span>BONES:</span>
<span>No acute fracture. Spurring of the olecranon.</span>

<span>JOINTS:</span>
<span>No malalignment.</span>

<span>SOFT TISSUES:</span>
<span>Uplifted anterior fat pad c/w an effusion. </span>
&lt ;br/><span>IMPRESSION</span>
<span>IMPRESSION: </span>
<span>There is a joint effusion without definite bony fracture.</span>
<span>Follow up elbow series would be of benefit. </span>

<span>If the report is "FINALIZED" it indicates that the attending/staff</span>
<span>radiologist has reviewed the images and agrees with the resident's</span>
<span>interpretation.</span>

<span>I have reviewed the study and agree with the findings in this report.</span>

<span>Signed By: Eric Cabezas DO, 06/06/2017 2:43 PM</span>
</p> Interface, Rad/Mammog In - 06/06/2017 2:48 PM RADIO TELEVISION TECHNICAL DIRECTOR EXAMINATION: XRAY ELBOW 2 VIEWS MIN SIDE: [...] By: Eric Cabezas DO, 06/06/2017 2:43 PM 06/06/2017 [facility] IMPRESSION: There is a joint effusion without definite bony fracture. Follow up elbow series would be of benefit. If the report is "FINALIZED" it indicates that the attending/staff radiologist has reviewed the images and agrees with the resident's interpretation. I have reviewed the study and agree with the findings in this report. Signed By: Eric Cabezas DO, 06/06/2017 2:43 PM EXAMINATION: XRAY ELBOW 2 VIEWS MIN SIDE: Right INDICATION: R elbow pain COMPARISON: None FINDINGS: BONES: No acute fracture.Spurring of the olecranon. JOINTS: No malalignment. SOFT TISSUES: Uplifted anterior fat pad c/w an effusion. Interface, Rad/Mammog In - 06/06/2017 2:48 PM RADIO TELEVISION TECHNICAL DIRECTOR EXAMINATION: XRAY ELBOW 2 VIEWS MIN SIDE: [...] By: Eric Cabezas DO, 06/06/2017 2:43 PM 06/06/2017 [facility] XRAY ELBOW 2 VIEWS MIN <p>IMPRESSION: </p><p>There is a joint effusion without definite bony fracture.</p><p>Follow up elbow series would be of benefit.</p><p> </p><p>If the report is "FINALIZED" it indicates that the attending/staff</p><p>radiologist has reviewed the images and agrees with the resident's</p><p>interpretation.</p><p> </p><p>I have reviewed the study and agree with the findings in this report.</p><p> </p><p>Signed By: Eric Cabezas DO, 06/06/2017 2:43 PM</p><p> </p> IMPRESSION: There is a joint effusion without definite bony fracture. Follow up elbow series would be of benefit. If the report is "FINALIZED" it indicates that the attending/staff radiologist has reviewed the images and agrees with the resident's interpretation. I have reviewed the study and agree with the findings in this report. Signed By: Eric Cabezas DO, 06/06/2017 2:43 PM 06/06/2017 [facility] XRAY ELBOW 2 VIEWS MIN <p>EXAMINATION: XRAY ELBOW 2 VIEWS MIN</p><p>SIDE: Right</p><p>INDICATION: R elbow pain </p><p>COMPARISON: None</p><p> </p><p>FINDINGS:</p><p> </p><p>BONES:</p><p>No acute fracture.Spurring of the olecranon.</p><p> </p><p>JOINTS:</p><p>No malalignment.</p><p> </p><p>SOFT TISSUES:</p><p>Uplifted anterior fat pad c/w an effusion.</p><p> </p> EXAMINATION: XRAY ELBOW 2 VIEWS MIN SIDE: Right INDICATION: R elbow pain COMPARISON: None FINDINGS: BONES: No acute fracture.Spurring of the olecranon. JOINTS: No malalignment. SOFT TISSUES: Uplifted anterior fat pad c/w an effusion. 06/06/2017 [facility] XRAY ELBOW 2 VIEWS MIN <p styleCode="header">Interface, Rad/Mammog In - 06/06/2017 2:48 PM RADIO TELEVISION TECHNICAL DIRECTOR</p><p><span>EXAMINATION: XRAY ELBOW 2 VIEWS MIN</span>
<span>SIDE: Right</span>
<span>INDICATION: R elbow pain </span>
<span>COMPARISON: None</span>
<span> </span>
<span>FINDINGS:</span>

<span>BONES:</span>
<span>No acute fracture. Spurring of the olecranon.</span>

<span>JOINTS:</span>
<span>No malalignment.</span>

<span>SOFT TISSUES:</span>
<span>Uplifted anterior fat pad c/w an effusion. </span>
&lt ;br/><span>IMPRESSION</span>
<span>IMPRESSION: </span>
<span>There is a joint effusion without definite bony fracture.</span>
<span>Follow up elbow series would be of benefit. </span>

<span>If the report is "FINALIZED" it indicates that the attending/staff</span>
<span>radiologist has reviewed the images and agrees with the resident's</span>
<span>interpretation.</span>

<span>I have reviewed the study and agree with the findings in this report.</span>

<span>Signed By: Eric Cabezas DO, 06/06/2017 2:43 PM</span>
</p> Interface, Rad/Mammog In - 06/06/2017 2:48 PM RADIO TELEVISION TECHNICAL DIRECTOR EXAMINATION: XRAY ELBOW 2 VIEWS MIN SIDE: [...] By: Eric Cabezas DO, 06/06/2017 2:43 PM 06/06/2017 [facility] XRAY ELBOW 2 VIEWS MIN IMPRESSION: There is a joint effusion without definite bony fracture. Follow up elbow series would be of benefit. If the report is "FINALIZED" it indicates that the attending/staff radiologist has reviewed the images and agrees with the resident's interpretation. I have reviewed the study and agree with the findings in this report. Signed By: Eric Cabezas DO, 06/06/2017 2:43 PM EXAMINATION: XRAY ELBOW 2 VIEWS MIN SIDE: Right INDICATION: R elbow pain COMPARISON: None FINDINGS: BONES: No acute fracture.Spurring of the olecranon. JOINTS: No malalignment. SOFT TISSUES: Uplifted anterior fat pad c/w an effusion. Interface, Rad/Mammog In - 06/06/2017 2:48 PM RADIO TELEVISION TECHNICAL DIRECTOR EXAMINATION: XRAY ELBOW 2 VIEWS MIN SIDE: [...] By: Eric Cabezas DO, 06/06/2017 2:43 PM 06/06/[address] [facility] [address] MAXILLOFACIAL W/O CONTRAST <p>IMPRESSION:</p><p>1.Tiny age-indeterminate left nasal fracture.</p><p>2.Multiple untreated dental caries.</p><p>3. Impacted right maxillary third molar.</p><p> </p><p>This [facility] radiology report is a preliminary resident dictation until</p><p>finalized by an attending. Changes to this preliminary report may occur</p><p>in an additional preliminary or finalized version.</p><p> </p><p>Dictated By: Jann Reyes MD, 05/21/2017 1:29 AM</p><p> </p><p>I have reviewed the study and agree with the findings in this report.</p><p> </p><p>Signed By: Sim Friedman MD, 05/21/2017 1:46 AM</p><p> </p> IMPRESSION: 1.Tiny age-indeterminate left nasal fracture. 2.Multiple untreated dental caries. 3.Impacted right maxillary third molar. This [facility] radiology report is a preliminary resident dictation until finalized by an attending.Changes to this preliminary report may occur in an additional preliminary or finalized version. Dictated By: Jann Reyes MD, 05/21/2017 1:29 AM I have reviewed the study and agree with the findings in this report. Signed By: Sim Friedman MD, 05/21/2017 1:46 AM 05/21/[address] [facility] [address] MAXILLOFACIAL W/O CONTRAST <p>EXAM: CT FACIAL BONES WITHOUT CONTRAST</p><p> </p><p>DATE: 05/21/2017 1:01 AM</p><p> </p><p>INDICATION: Facial trauma</p><p> </p><p>COMPARISON: None.</p><p> </p><p>TECHNIQUE: Volumetric CT acquisition of the facial bones without</p><p>contrast. Axial, coronal and sagittal reconstructions. </p><p>IV contrast: None.</p><p>DLP: 902 mGy-cm</p><p> </p><p>FINDINGS: </p><p> </p><p>Bones: Tiny osseous fragment is seen adjacent to the left nasal bone,</p><p>representing a small age- indeterminate fracture. No other facial</p><p>fracture identified. The mandible is intact, and the temporomandibular</p><p>joints are well-aligned. </p><p>The paranasal sinuses and mastoid air cells are clear.</p><p> </p><p>Soft tissues: No abnormality of the globes is seen. There is no</p><p>intraconal hematoma. No radiopaque foreign body. Atherosclerotic</p><p>calcifications are seen in the bilateral carotid siphons. Cavum septum</p><p>pellucidum and vergae are incidentally noted. The visualized brain</p><p>parenchyma is otherwise within normal limits.</p><p> </p><p>Dentition: The right maxillary third molar is impacted, with its roots</p><p>in the maxillary sinus. Numerous untreated caries are seen, particularly</p><p>in the left mandibular molars.</p><p> </p> EXAM: CT FACIAL BONES WITHOUT CONTRAST DATE: [...] seen, particularly in the left mandibular molars. 05/21/2017 [facility] [address] MAXILLOFACIAL W/O CONTRAST <p styleCode="header">Interface, Rad/Mammog In - 05/21/2017 1:51 AM RADIO TELEVISION TECHNICAL DIRECTOR</p><p><span>EXAM: CT FACIAL BONES WITHOUT CONTRAST</span>

<span>DATE: 05/21/2017 1:01 AM</span>

<span>INDICATION: Facial trauma</span>

<span>COMPARISON: None.</span>

<span>TECHNIQUE: Volumetric CT acquisition of the facial bones without</span>
<span>contrast. Axial, coronal and sagittal reconstructions. </span>
<span>IV contrast: None.</span>
<span>DLP: 902 mGy-cm</span>

<span>FINDINGS: </span>

<span>Bones: Tiny osseous fragment is seen adjacent to the left nasal bone,</span>
<span>representing a small age-indeterminate fracture. No other facial</span>
<span>fracture identified. The mandible is intact, and the temporomandibular</span>
<span>joints are well-aligned. </span>
<span>The paranasal sinuses and mastoid air cells are clear.</span>

<span>Soft tissues: No abnormality of the globes is seen. There is no</span>
<span>intraconal hematoma. No radiopaque foreign body. Atherosclerotic</span>
<span>calcifications are seen in the bilateral carotid siphons. Cavum septum</span>
<span>pellucidum and vergae are incidentally noted. The visualized brain</span>
<span>parenchyma is otherwise within normal limits.</span>

<span>Dentition: The right maxillary third molar is impacted, with its roots</span>
<span>in the maxillary sinus. Numerous untreated caries are seen, particularly</span>
<span>in the left mandibular molars.</span>

<span>IMPRESSION</span>
<span>IMPRESSION: </span>
<span>1. Tiny age- indeterminate left nasal fracture.</span>
<span>2. Multiple untreated dental caries.</span>
<span>3. Impacted right maxillary third molar.</span>

<span>This [facility] radiology report is a preliminary resi dent dictation until</span>
<span>finalized by an attending. Changes to this preliminary report may occur</span>
<span>in an additional preliminary or finalized version.</span>

<span>Dictated By: Jann Reyes MD, 05/21/2017 1:29 AM</span>

<span>I have reviewed the study and agree with the findings in this report.</span>

<span>Signed By: Sim Friedman MD, 05/21/2017 1:46 AM</span>
</p> Interface, Rad/Mammog In - 05/21/2017 1:51 AM RADIO TELEVISION TECHNICAL DIRECTOR EXAM: CT FACIAL BONES WITHOUT CONTRAST DATE: [...] 3. Impacted right maxillary third molar. This [facility] radiology report is a preliminary resident dictation until finalized by an attending. Changes to this preliminary report may occur in an additional preliminary or finalized version. Dictated By: Jann Reyes MD, 05/21/2017 1:29 AM I have reviewed the study and agree with the findings in this report. Signed By: Sim Friedman MD, 05/21/2017 1:46 AM 05/21/2017 [facility] IMPRESSION: 1.Tiny age-indeterminate left nasal fracture. 2.Multiple untreated dental caries. 3.Impacted right maxillary third molar. This [facility] radiology report is a preliminary resident dictation until finalized by an attending.Changes to this preliminary report may occur in an additional preliminary or finalized version. Dictated By: Jann Reyes MD, 05/21/2017 1:29 AM I have reviewed the study and agree with the findings in this report. Signed By: Sim Friedman MD, 05/21/2017 1:46 AM EXAM: CT FACIAL BONES WITHOUT CONTRAST DATE: [...] seen, particularly in the left mandibular molars. Interface, Rad/Mammog In - 05/21/2017 1:51 AM RADIO TELEVISION TECHNICAL DIRECTOR EXAM: CT FACIAL BONES WITHOUT CONTRAST DATE: [...] 3. Impacted right maxillary third molar. This [facility] radiology report is a preliminary resident dictation until finalized by an attending. Changes to this preliminary report may occur in an additional preliminary or finalized version. Dictated By: Jann Reyes MD, 05/21/2017 1:29 AM I have reviewed the study and agree with the findings in this report. Signed By: Sim Friedman MD, 05/21/2017 1:46 AM 05/21/[address] [facility] [address] MAXILLOFACIAL W/O CONTRAST <p>IMPRESSION:</p><p>1.Tiny age-indeterminate left nasal fracture.</p><p>2.Multiple untreated dental caries.</p><p>3. Impacted right maxillary third molar.</p><p> </p><p>This [facility] radiology report is a preliminary resident dictation until</p><p>finalized by an attending. Changes to this preliminary report may occur</p><p>in an additional preliminary or finalized version.</p><p> </p><p>Dictated By: Jann Reyes MD, 05/21/2017 1:29 AM</p><p> </p><p>I have reviewed the study and agree with the findings in this report.</p><p> </p><p>Signed By: Sim Friedman MD, 05/21/2017 1:46 AM</p><p> </p> IMPRESSION: 1.Tiny age-indeterminate left nasal fracture. 2.Multiple untreated dental caries. 3.Impacted right maxillary third molar. This [facility] radiology report is a preliminary resident dictation until finalized by an attending.Changes to this preliminary report may occur in an additional preliminary or finalized version. Dictated By: Jann Reyes MD, 05/21/2017 1:29 AM I have reviewed the study and agree with the findings in this report. Signed By: Sim Friedman MD, 05/21/2017 1:46 AM 05/21/[address] [facility] [address] MAXILLOFACIAL W/O CONTRAST <p>EXAM: CT FACIAL BONES WITHOUT CONTRAST</p><p> </p><p>DATE: 05/21/2017 1:01 AM</p><p> </p><p>INDICATION: Facial trauma</p><p> </p><p>COMPARISON: None.</p><p> </p><p>TECHNIQUE: Volumetric CT acquisition of the facial bones without</p><p>contrast. Axial, coronal and sagittal reconstructions. </p><p>IV contrast: None.</p><p>DLP: 902 mGy-cm</p><p> </p><p>FINDINGS: </p><p> </p><p>Bones: Tiny osseous fragment is seen adjacent to the left nasal bone,</p><p>representing a small age- indeterminate fracture. No other facial</p><p>fracture identified. The mandible is intact, and the temporomandibular</p><p>joints are well-aligned. </p><p>The paranasal sinuses and mastoid air cells are clear.</p><p> </p><p>Soft tissues: No abnormality of the globes is seen. There is no</p><p>intraconal hematoma. No radiopaque foreign body. Atherosclerotic</p><p>calcifications are seen in the bilateral carotid siphons. Cavum septum</p><p>pellucidum and vergae are incidentally noted. The visualized brain</p><p>parenchyma is otherwise within normal limits.</p><p> </p><p>Dentition: The right maxillary third molar is impacted, with its roots</p><p>in the maxillary sinus. Numerous untreated caries are seen, particularly</p><p>in the left mandibular molars.</p><p> </p> EXAM: CT FACIAL BONES WITHOUT CONTRAST DATE: [...] seen, particularly in the left mandibular molars. 05/21/[address] [facility] [address] MAXILLOFACIAL W/O CONTRAST <p styleCode="header">Interface, Rad/Mammog In - 05/21/2017 1:51 AM RADIO TELEVISION TECHNICAL DIRECTOR</p><p><span>EXAM: CT FACIAL BONES WITHOUT CONTRAST</span>

<span>DATE: 05/21/2017 1:01 AM</span>

<span>INDICATION: Facial trauma</span>

<span>COMPARISON: None.</span>

<span>TECHNIQUE: Volumetric CT acquisition of the facial bones without</span>
<span>contrast. Axial, coronal and sagittal reconstructions. </span>
<span>IV contrast: None.</span>
<span>DLP: 902 mGy-cm</span>

<span>FINDINGS: </span>

<span>Bones: Tiny osseous fragment is seen adjacent to the left nasal bone,</span>
<span>representing a small age-indeterminate fracture. No other facial</span>
<span>fracture identified. The mandible is intact, and the temporomandibular</span>
<span>joints are well-aligned. </span>
<span>The paranasal sinuses and mastoid air cells are clear.</span>

<span>Soft tissues: No abnormality of the globes is seen. There is no</span>
<span>intraconal hematoma. No radiopaque foreign body. Atherosclerotic</span>
<span>calcifications are seen in the bilateral carotid siphons. Cavum septum</span>
<span>pellucidum and vergae are incidentally noted. The visualized brain</span>
<span>parenchyma is otherwise within normal limits.</span>

<span>Dentition: The right maxillary third molar is impacted, with its roots</span>
<span>in the maxillary sinus. Numerous untreated caries are seen, particularly</span>
<span>in the left mandibular molars.</span>

<span>IMPRESSION</span>
<span>IMPRESSION: </span>
<span>1. Tiny age- indeterminate left nasal fracture.</span>
<span>2. Multiple untreated dental caries.</span>
<span>3. Impacted right maxillary third molar.</span>

<span>This [facility] radiology report is a preliminary resi dent dictation until</span>
<span>finalized by an attending. Changes to this preliminary report may occur</span>
<span>in an additional preliminary or finalized version.</span>

<span>Dictated By: Jann Reyes MD, 05/21/2017 1:29 AM</span>

<span>I have reviewed the study and agree with the findings in this report.</span>

<span>Signed By: Sim Friedman MD, 05/21/2017 1:46 AM</span>
</p> Interface, Rad/Mammog In - 05/21/2017 1:51 AM RADIO TELEVISION TECHNICAL DIRECTOR EXAM: CT FACIAL BONES WITHOUT CONTRAST DATE: [...] 3. Impacted right maxillary third molar. This [facility] radiology report is a preliminary resident dictation until finalized by an attending. Changes to this preliminary report may occur in an additional preliminary or finalized version. Dictated By: Jann Reyes MD, 05/21/2017 1:29 AM I have reviewed the study and agree with the findings in this report. Signed By: Sim Friedman MD, 05/21/2017 1:46 AM 05/21/[address] [facility] [address] MAXILLOFACIAL W/O CONTRAST IMPRESSION: 1.Tiny age-indeterminate left nasal fracture. 2.Multiple untreated dental caries. 3.Impacted right maxillary third molar. This [facility] radiology report is a preliminary resident dictation until finalized by an attending.Changes to this preliminary report may occur in an additional preliminary or finalized version. Dictated By: Jann Reyes MD, 05/21/2017 1:29 AM I have reviewed the study and agree with the findings in this report. Signed By: Sim Friedman MD, 05/21/2017 1:46 AM EXAM: CT FACIAL BONES WITHOUT CONTRAST DATE: [...] seen, particularly in the left mandibular molars. Interface, Rad/Mammog In - 05/21/2017 1:51 AM RADIO TELEVISION TECHNICAL DIRECTOR EXAM: CT FACIAL BONES WITHOUT CONTRAST DATE: [...] 3. Impacted right maxillary third molar. This [facility] radiology report is a preliminary resident dictation until finalized by an attending. Changes to this preliminary report may occur in an additional preliminary or finalized version. Dictated By: Jann Reyes MD, 05/21/2017 1:29 AM I have reviewed the study and agree with the findings in this report. Signed By: Sim Friedman MD, 05/21/2017 1:46 AM 05/21/2017 [facility] BASIC METABOLIC PANEL CO2 26.8 mmol/L 21 - 32 05/14/2017 [facility] BASIC METABOLIC PANEL Chloride 97 mmol/L 98 - 107 05/14/2017 [facility] BASIC METABOLIC PANEL Potassium 3.8 mmol/L 3.5 - 5.1 05/14/2017 [facility] BASIC METABOLIC PANEL Sodium 132 mmol/L 136 - 145 05/14/2017 [facility] BASIC METABOLIC PANEL Glucose 132 mg/dL 70 - 99 05/14/2017 [facility] BASIC METABOLIC PANEL Urea Nitrogen 10 mg/dL 7 - 18 05/14/2017 [facility] BASIC METABOLIC PANEL Creatinine 0.89 mg/dL 0.6 - 1.3 05/14/2017 [facility] BASIC METABOLIC PANEL Anion Gap 8.2 05/14/2017 [facility] BASIC METABOLIC PANEL Calcium 8.7 mg/dL 8.5 - 10.2 05/14/2017 [facility] BASIC METABOLIC PANEL GFR, Estimated >60 mL/min/1.73 m2 05/14/2017 [facility] BASIC METABOLIC PANEL GFR, Estim, Afr-Am >60 mL/min/1.73 m2 05/14/2017 [facility] BASIC METABOLIC PANEL Lab Interpretation Abnormal 05/14/2017 [facility] CBC/DIFF WBC 9.5 K/uL 4.5 - 12 05/13/2017 [facility] CBC/DIFF RBC 4.24 4.60 - 6.20 05/13/2017 [facility] CBC/DIFF Hemoglobin 13.3 g/dL 14 - 18 05/13/2017 [facility] CBC/DIFF Hematocrit 38.4 % 40 - 54 05/13/2017 [facility] CBC/DIFF MCV 91 fL 82 - 92 05/13/2017 [facility] CBC/DIFF MCH 31.4 pg 27 - 31 05/13/2017 [facility] CBC/DIFF MCHC 34.6 g/dL 32 - 36 05/13/2017 [facility] CBC/DIFF RDW 39.9 fL 35.1 - 43.9 05/13/2017 [facility] CBC/DIFF Platelet 266 K/uL 150 - 400 05/13/2017 [facility] CBC/DIFF Mean Platelet Volume 8.6 fL 9.4 - 12.4 05/13/2017 [facility] CBC/DIFF Percent NRBC 0.0 05/13/2017 [facility] CBC/DIFF Absolute NRBC 0.00 05/13/2017 [facility] CBC/DIFF Neutrophil 70.9 % 34 - 67.9 05/13/2017 [facility] CBC/DIFF Lymphocyte 19.1 % 21.8 - 50 05/13/2017 [facility] CBC/DIFF Monocyte 8.9 % 5.3 - 12 05/13/2017 [facility] CBC/DIFF Eosinophil 0.3 % 0.8 - 5 05/13/2017 [facility] CBC/DIFF Basophil 0.4 % 0.2 - 1.2 05/13/2017 [facility] CBC/DIFF Pct Immat Gran 0.4 0.0 - 0.5 05/13/2017 [facility] CBC/DIFF Neutrophil, Abs 6.74 K/uL 1.78 - 5.36 05/13/2017 [facility] CBC/DIFF Lymphocyte, Abs 1.82 K/uL 1.32 - 3.57 05/13/2017 [facility] CBC/DIFF Monocyte, Abs 0.85 K/uL 0.3 - 0.82 05/13/2017 [facility] CBC/DIFF Eosinophil, Abs 0.03 K/uL 0.04 - 0.54 05/13/2017 [facility] CBC/DIFF Basophil, Abs 0.04 K/uL 0.01 - 0.08 05/13/2017 [facility] CBC/DIFF Absol Immat Gran 0.04 K/uL 0 - 0.03 05/13/2017 [facility] CBC/DIFF Lab Interpretation Abnormal 05/13/2017 [facility] BASIC METABOLIC PANEL CO2 26.8 mmol/L 21 - 32 05/13/2017 [facility] BASIC METABOLIC PANEL Chloride 97 mmol/L 98 - 107 05/13/[address] [facility] BASIC METABOLIC PANEL Potassium 3.8 mmol/L 3.5 - 5.1 05/13/2017 [facility] BASIC METABOLIC PANEL Sodium 132 mmol/L 136 - 145 05/13/[address] [facility] BASIC METABOLIC PANEL Glucose 132 mg/dL 70 - 99 05/13/[address] [facility] BASIC METABOLIC PANEL Urea Nitrogen 10 mg/dL 7 - 18 05/13/2017 [facility] BASIC METABOLIC PANEL Creatinine 0.89 mg/dL 0.6 - 1.3 05/13/2017 [facility] BASIC METABOLIC PANEL Anion Gap 8.2 05/13/2017 [facility] BASIC METABOLIC PANEL Calcium 8.7 mg/dL 8.5 - 10.2 05/13/2017 [facility] BASIC METABOLIC PANEL GFR, Estimated >60 mL/min/1.73 m2 05/13/2017 [facility] BASIC METABOLIC PANEL GFR, Estim, Afr-Am >60 mL/min/1.73 m2 05/13/2017 [facility] BASIC METABOLIC PANEL Lab Interpretation Abnormal 05/13/2017 [facility] BMP POC CO2 POC 25 mmol/L 21 - 32 05/13/2017 [facility] POC Chloride POC 92 mmol/L 98 - 107 05/13/2017 Low [facility] POC Potassium POC 4.2 mmol/L 3.5 - 5.1 05/13/2017 [facility] POC Sodium POC 128 mmol/L 136 - 145 05/13/2017 Low [facility] POC Glucose POC 92 mg/dL 74 - 106 05/13/2017 [facility] POC Urea Nitrogen POC 9 mg/dL 7 - 18 05/13/2017 [facility] POC Creatinine POC 0.8 mg/dL 0.6 - 1.3 05/13/2017 [facility] POC Calcium Ionized POC 1.16 mmol/L 1.15 - 1.29 05/13/2017 [facility] POC Hemoglobin POC 14.3 g/dL 14 - 18 05/13/2017 [facility] POC Hematocrit POC 42.0 % 40 - 54 05/13/2017 [facility] POC GFR, Estimated >60 mL/min/1.73 m2 05/13/2017 [facility] POC GFR, Estim, Afr-Am >60 mL/min/1.73 m2 05/13/2017 [facility] POC Lab Interpretation Abnormal 05/13/2017 [facility] CBC/DIFF WBC 9.5 K/uL 4.5 - 12 05/13/2017 [facility] CBC/DIFF RBC 4.24 M/uL 4.60 - 6.20 05/13/[address] [facility] CBC/DIFF Hemoglobin 13.3 g/dL 14 - 18 05/13/[address] [facility] CBC/DIFF Hematocrit 38.4 % 40 - 54 05/13/2017 [facility] CBC/DIFF MCV 91 fL 82 - 92 05/13/2017 [facility] CBC/DIFF MCH 31.4 pg 27 - 31 05/13/[address] [facility] CBC/DIFF MCHC 34.6 g/dL 32 - 36 05/13/2017 [facility] CBC/DIFF RDW 39.9 fL 35.1 - 43.9 05/13/2017 [facility] CBC/DIFF Platelet 266 K/uL 150 - 400 05/13/2017 [facility] CBC/DIFF Mean Platelet Volume 8.6 fL 9.4 - 12.4 05/13/2017 [facility] CBC/DIFF Percent NRBC 0.0 05/13/2017 [facility] CBC/DIFF Absolute NRBC 0.00 05/13/2017 [facility] CBC/DIFF Neutrophil 70.9 % 34 - 67.9 05/13/2017 [facility] CBC/DIFF Lymphocyte 19.1 % 21.8 - 50 05/13/[address] [facility] CBC/DIFF Monocyte 8.9 % 5.3 - 12 05/13/2017 [facility] CBC/DIFF Eosinophil 0.3 % 0.8 - 5 05/13/[address] [facility] CBC/DIFF Basophil 0.4 % 0.2 - 1.2 05/13/2017 [facility] CBC/DIFF Pct Immat Gran 0.4 0.0 - 0.5 05/13/2017 [facility] CBC/DIFF Neutrophil, Abs 6.74 K/uL 1.78 - 5.36 05/13/[address] [facility] CBC/DIFF Lymphocyte, Abs 1.82 K/uL 1.32 - 3.57 05/13/2017 [facility] CBC/DIFF Monocyte, Abs 0.85 K/uL 0.3 - 0.82 05/13/2017 [facility] CBC/DIFF Eosinophil, Abs 0.03 K/uL 0.04 - 0.54 05/13/2017 [facility] CBC/DIFF Basophil, Abs 0.04 K/uL 0.01 - 0.08 05/13/2017 [facility] CBC/DIFF Absol Immat Gran 0.04 K/uL 0 - 0.03 05/13/[address] [facility] CBC/DIFF Lab Interpretation Abnormal 05/13/2017 [facility] POC GLUCOSE-FQHC MANUALLY ENTERED GLUCOSE 91 04/23/2017 [facility] POC GLUCOSE-FQHC MANUALLY ENTERED GLUCOSE 91 04/23/2017 [facility] URINE DRUG SCREEN Amphetamine Negative NEG 04/08/2017 Calibrated Standard: D-Methamphetamine Positive if urine level >fh=6985 ng/mL [facility] URINE DRUG SCREEN Barbiturate Negative NEG 04/08/2017 Calibrated Standard: Secobarbital Positive if urine level is >dc=999 ng/mL [facility] URINE DRUG SCREEN Benzodiazepine Negative NEG 04/08/2017 Calibrated Standard: Lormethazepam Positive if urine level is >ul=357 ng/mL [facility] URINE DRUG SCREEN Cannabinoid Negative NEG 04/08/2017 Calibrated Standard: 11 nor-delta(9)-THC carboxylic a Positive if urine level >or=50 [facility] URINE DRUG SCREEN Cocaine Negative NEG 04/08/2017 Calibrated Standard: Benzoylecgonine Positive if urine level >ty=359 [facility] URINE DRUG SCREEN Opiate, Ur Negative NEG 04/08/2017 Calibrated Standard: Morphine Positive if urine level >bq=345 [facility] URINE DRUG SCREEN PCP Negative NEG 04/08/2017 Calibrated Standard: Phencyclidine Positive if urine level >or=25 Urine Toxicology Screen results are to be used only for Medical purposes. [facility] UA CHEMISTRIES Color Colorless 04/08/2017 [facility] UA CHEMISTRIES Clarity Clear 04/08/2017 [facility] UA CHEMISTRIES Spec [place] 1.002 1.001 - 1.035 04/08/2017 [facility] UA CHEMISTRIES pH 7.0 5 - 8 04/08/2017 [facility] UA CHEMISTRIES Protein Negative NEG 04/08/2017 [facility] UA CHEMISTRIES Glucose Negative NEG 04/08/2017 [facility] UA CHEMISTRIES Ketone Negative NEG 04/08/2017 [facility] UA CHEMISTRIES Bilirubin Negative NEG 04/08/2017 [facility] UA CHEMISTRIES Nitrate Negative NEG 04/08/2017 [facility] UA CHEMISTRIES Urobilinogen <1.0 0.2 - 1 04/08/2017 [facility] UA CHEMISTRIES Leukocyte Negative NEG 04/08/2017 [facility] UA CHEMISTRIES Blood Negative NEG 04/08/2017 [facility] UA CHEMISTRIES Color Colorless 04/07/2017 [facility] UA CHEMISTRIES Clarity Clear 04/07/2017 [facility] UA CHEMISTRIES Spec [place] 1.002 1.001 - 1.035 04/07/2017 [facility] UA CHEMISTRIES pH 7.0 5 - 8 04/07/2017 [facility] UA CHEMISTRIES Protein Negative NEG 04/07/2017 [facility] UA CHEMISTRIES Glucose Negative NEG 04/07/2017 [facility] UA CHEMISTRIES Ketone Negative NEG 04/07/2017 [facility] UA CHEMISTRIES Bilirubin Negative NEG 04/07/2017 [facility] UA CHEMISTRIES Nitrate Negative NEG 04/07/2017 [facility] UA CHEMISTRIES Urobilinogen <1.0 0.2 - 1 04/07/2017 [facility] UA CHEMISTRIES Leukocyte Negative NEG 04/07/2017 [facility] UA CHEMISTRIES Blood Negative NEG 04/07/2017 [facility] URINE DRUG SCREEN Amphetamine Negative NEG 04/07/2017 Calibrated Standard: D-Methamphetamine Positive if urine level >bz=7599 ng/mL [facility] URINE DRUG SCREEN Barbiturate Negative NEG 04/07/2017 Calibrated Standard: Secobarbital Positive if urine level is >hy=018 ng/mL [facility] URINE DRUG SCREEN Benzodiazepine Negative NEG 04/07/2017 Calibrated Standard: Lormethazepam Positive if urine level is >un=311 ng/mL [facility] URINE DRUG SCREEN Cannabinoid Negative NEG 04/07/2017 Calibrated Standard: 11 nor-delta(9)-THC carboxylic a Positive if urine level >or=50 [facility] URINE DRUG SCREEN Cocaine Negative NEG 04/07/2017 Calibrated Standard: Benzoylecgonine Positive if urine level >az=816 [facility] URINE DRUG SCREEN Opiate, Ur Negative NEG 04/07/2017 Calibrated Standard: Morphine Positive if urine level >kc=036 [facility] URINE DRUG SCREEN PCP Negative NEG 04/07/2017 Calibrated Standard: Phencyclidine Positive if urine level >or=25 Urine Toxicology Screen results are to be used only for Medical purposes. [facility] Vital Signs Vital Sign Value Date Comments Source Systolic (mm Hg) 120 12/05/2017 [facility] Diastolic (mm Hg) 74 12/05/2017 [facility] Heart Rate 67 12/05/2017 [facility] Temperature Oral (F) 36.44 Teena 12/05/2017 [facility] Respitory Rate 18 12/05/2017 [facility] Height 175.3 cm 12/05/2017 [facility] Weight 78.518 12/05/2017 [facility] BMI Calculated 25.56 12/05/2017 [facility] Systolic (mm Hg) 122 11/29/2017 [facility] Diastolic (mm Hg) 76 11/29/2017 [facility] Heart Rate 78 11/29/2017 [facility] Temperature Oral (F) 36.72 Teena 11/29/2017 [facility] Respitory Rate 16 11/29/2017 [facility] Systolic (mm Hg) 134 11/05/2017 [facility] Diastolic (mm Hg) 87 11/05/2017 [facility] Heart Rate 100 11/05/2017 [facility] Temperature Oral (F) 36.72 Teena 11/05/2017 [facility] Respitory Rate 20 11/05/2017 [facility] Height 175.3 cm 09/05/2017 [facility] Weight 82.555 09/05/2017 [facility] BMI Calculated 26.88 09/05/2017 [facility] Encounters Location Location Details Encounter Type Encounter Number Reason For Visit Attending Provider ADM Date DC Date Status Source Emergency Center [facility] Emergency [id number] Bipolar disorder, current episode mixed, moderate Adina Price MD 04/08/2017 04/08/2017 [facility] Morenita Nash Primary Care Medicine Office Visit [id number] Screening for diabetes mellitus (DM) Seborrheic dermatitis, unspecified Healthcare maintenance Enedelia Reis 04/23/2017 04/23/2017 [facility] Morenita Nash. Clinical Case Management Clinical Case Mgt [id number] Raphael Herrera 04/23[facility]2017 [facility] Telephone [id number] Raphael Herrera 04/24/2017 [facility] Primary Care Medicine Office Visit [id number] Seborrheic dermatitis, unspecified Homelessness Healthcare maintenance Enedelia Reis 05/02/2017 05/02/2017 [facility] Medicine Clinic Office Visit [id number] Anthony Ray ResidentDE 05/09/2017 05/09/2017 [facility] [place] [facility] Emergency [id number] Tremors of nervous system Anxiety Bipolar disorder, current episode mixed, moderate Hyponatremia Gerardo Glaser ResidentMD 05/13/2017 05/14/2017 [facility] SOCIAL WORK CASE MANAGEMENT Clinical Case Mgt [id number] Ailyn Mary 05/15/2017 05/15/2017 [facility] Emergency [id number] 05/18/2017 05/18/2017 [facility] ([id number]) [facility] Emergency [id number] Facial injury, initial encounter Avulsion of multiple teeth due to trauma, initial encounter Chato Stallworth MD 05/21/2017 05/21/2017 [facility] Primary Care Medicine Office Visit [id number] Abrasion of lip, initial encounter Devin Patterson NP 05/23/2017 05/23/2017 [facility] BT Emergency [id number] Elbow pain, right Yanni Clementina VELASQUEZ 06/07/2017 06/07/2017 [facility] [place] Orders Only [id number] Preventative health care Pain in both feet Sonya Gong MD 07/31/2017 [facility] [place] [facility] [id number] 07/31/2017 [facility] [place] Office Visit [id number] Elevated LFTs Anemia, unspecified type Hyperlipidemia, unspecified hyperlipidemia type Tobacco abuse disorder Environmental allergies Chronic pain of right knee Pain in both feet Polyarthralgia Preventative health care Sonya Gong MD 07/31/2017 07/31/2017 [facility] [place] [facility] Visit [id number] 08/01/2017 [facility] Visit [id number] 08/06/2017 [facility] ([id number]) [facility] Emergency [id number] Letty MARIN 08/06/2017 08/06/2017 [facility] Same Day Office Visit [id number] Plantar fasciitis, bilateral Marlon Yoder MD 08/06/2017 08/06/2017 [facility] ACS Clinical Case Mgmt Svcs Telephone [id number] Chloe Jaffe 08/07/2017 [facility] [place] BT Emergency [id number] 08/09/2017 08/09/2017 [facility] [place] [facility] [id number] 08/15/[facility] [id number] Chronic pain of both knees Homelessness Enedelia Reis 08/27/2017 [facility]/27/[facility] Management Clinical Case Mgt [id number] Raphael Herrera 08/27/2017 08/27/2017 [facility] Clinical Case Mgt [id number] Aracelis Goldsmith 08/27/2017 08/27/2017 [facility] ASK YOUR NURSE PROGRAM Nurse Triage [id number] Anderson Aceves RN 08/28/2017 [facility] Visit [id number] 08/30/2017 [facility] [place] ([id number]) [facility] Emergency [id number] Closed fracture of tooth, initial encounter Yvon Bee MD 08/30/2017 08/30/2017 [facility] ASK YOUR NURSE PROGRAM Nurse Triage [id number] Anderson Aceves RN 09/05/2017 [facility] Same Day Same Day [id number] Dentalgia Berkley Cadena POWDERER 09/05/2017 09/05/2017 [facility] BT Emergency [id number] 10/08/2017 10/09/2017 [facility] BT Emergency [id number] Encounter for medical screening examination 11/05/2017 11/05/2017 [facility] BT Emergency [id number] 11/26/2017 11/26/2017 [facility] Same Day Office Visit [id number] Nadia Dave POWDERER 11/28/2017 11/28/2017 [facility] BT Emergency [id number] Encounter for medical screening examination Pain in both lower extremities Sim Parra NP 11/29/2017 11/29/2017 [facility] Primary Care Medicine Office Visit [id number] Polyarthralgia Homelessness Beny Rabago 12/02/2017 12/02/2017 [facility] Clinical Case Management Clinical Case Mgt [id number] Raphael Herrera 12/02/2017 12/02/2017 [facility] Visit [id number] 12/05/2017 [facility] Same Day Office Visit [id number] Chronic pain of both knees Marlon Yoder MD 12/05/2017 12/05/2017 [facility] Visit [id number] 12/06/2017 [facility] [place] Refill [id number] Chronic pain of both knees Sonya Gong MD 12/07/2017 [facility] Visit [id number] 12/07/2017 [facility] Morenita Reis Clinical Case Management Clinical Case Mgt [id number] Raphael Herrera 12/11/2017 12/11/2017 [facility] Procedures Procedure Code Date Perfomer Comments Source BMP POC 24458 11/05/[address] [facility] XRAY ELBOW 2 VIEWS MIN 59999 06/06/[address] [facility] CT MAXILLOFACIAL W/O CONTRAST 95518 05/21/2017 [facility] BASIC METABOLIC PANEL 69984 05/14/[address] [facility] BMP POC 74733 05/13/2017 [facility] CBC/DIFF 46162 05/13/2017 [facility] POC GLUCOSE-FQHC MANUALLY ENTERED 28299 04/23/[address] [facility] UA CHEMISTRIES 01444 04/08/2017 [facility] URINE DRUG SCREEN 68464 04/08/2017 [facility]
--- OUTSIDE RECORDS SUMMARY | 2018-02-09 23:30 | XMS REPORT ---
[facility] Address Unknown Phone Unavailable Care Team Providers Care Camp Assistant Name Role Phone Unavailable Unavailable Payers Payer Name Policy Type Policy Number Effective Date Expiration Date Problems This patient has no known problems. Allergies, Adverse Reactions, Alerts Allergy Name Allergy Type Status Severity Reaction(s) Onset Date Inactive Date Treating Clinician Comments Penicillins DA Active U 2018-02-09 00:00:00 No Known Allergies DA Active U 2018-01-05 00:00:00 Penicillins DA Active U 2017-12-15 00:00:00 Medications This patient has no known medications. Encounters Start Date/Time End Date/Time Encounter Type Admission Type Attending [facility] Facility Care Department Encounter ID 2018-03-26 00:00:00 2018-03-26 00:00:00 Outpatient [facility] [id number] 2018-02-23 00:00:00 2018-02-23 00:00:00 Outpatient [facility] [id number] 2018-02-09 00:00:00 2018-02-09 00:00:00 Outpatient [facility] [id number] 2018-02-05 08:10:44 2018-02-05 08:10:44 Outpatient [facility] [id number] 2018-02-04 00:00:00 2018-02-04 00:00:00 Outpatient [facility] [id number] 2018-01-26 11:07:32 2018-01-26 11:07:32 Outpatient [facility] [id number] 2018-01-23 00:00:00 2018-01-23 00:00:00 Outpatient [facility] [id number] 2018-01-07 11:22:32 2018-01-07 11:22:32 Outpatient [facility] [id number] 2018-01-02 11:49:21 2018-01-02 11:49:21 Outpatient [facility] [id number] 2018-01-02 11:00:16 2018-01-02 11:00:16 Outpatient [facility] [id number] 2017-12-31 12:46:00 2017-12-31 12:46:00 Emergency [facility] [id number] 2017-12-24 00:00:00 2017-12-24 00:00:00 Outpatient [facility] [id number] 2017-12-23 09:05:30 2017-12-23 09:05:30 Outpatient [facility] [id number] 2017-12-18 00:00:00 2017-12-18 00:00:00 Outpatient [facility] [id number] 2017-12-11 10:49:53 2017-12-11 10:49:53 Outpatient [facility] [id number] 2017-12-07 00:00:00 2017-12-07 00:00:00 Outpatient [facility] [id number] 2017-12-05 15:16:55 2017-12-05 15:16:55 Outpatient [facility] [id number] 2017-12-02 11:50:16 2017-12-02 11:50:16 Outpatient [facility] [id number] 2017-12-02 11:22:54 2017-12-02 11:22:54 Outpatient [facility] [id number] 2017-11-28 23:35:00 2017-11-28 23:35:00 Emergency [facility] [id number] 2017-11-28 00:00:00 2017-11-28 00:00:00 Outpatient [facility] [id number] 2017-11-26 17:49:00 2017-11-26 17:49:00 Emergency [facility] [id number] 2017-11-05 02:00:00 2017-11-05 02:00:00 Emergency [facility] [id number] 2017-11-05 00:00:00 2017-11-05 00:00:00 Outpatient [facility] [id number] 2017-10-31 00:00:00 2017-10-31 00:00:00 Outpatient [facility] [id number] 2017-10-08 18:23:00 2017-10-08 18:23:00 Emergency [facility] [id number] 2017-09-19 00:00:00 2017-09-19 00:00:00 Outpatient [facility] [id number] 2017-09-05 16:20:40 2017-09-05 16:20:40 Outpatient [facility] [id number] 2017-08-30 12:34:55 2017-08-30 12:34:55 Emergency [facility] [id number] 2017-08-28 00:00:00 2017-08-28 00:00:00 Outpatient [facility] [id number] 2017-08-27 16:09:33 2017-08-27 16:09:33 Outpatient [facility] [id number] 2017-08-27 15:47:43 2017-08-27 15:47:43 Outpatient [facility] [id number] 2017-08-27 15:35:32 2017-08-27 15:35:32 Outpatient [facility] [id number] 2017-08-08 20:46:00 2017-08-08 20:46:00 Emergency [facility] [id number] 2017-08-06 15:08:36 2017-08-06 15:08:36 Outpatient [facility] [id number] 2017-08-06 10:08:20 2017-08-06 10:08:20 Emergency [facility] [id number] 2017-08-05 00:00:00 2017-08-05 00:00:00 Outpatient [facility] [id number] 2017-08-05 00:00:00 2017-08-05 00:00:00 Outpatient [facility] [id number] 2017-07-31 15:07:36 2017-07-31 15:07:36 Outpatient [facility] [id number] 2017-07-23 00:00:00 2017-07-23 00:00:00 Outpatient [facility] [id number] 2017-06-18 00:00:00 2017-06-18 00:00:00 Outpatient [facility] [id number] 2017-06-16 00:00:00 2017-06-16 00:00:00 Outpatient [facility] [id number] 2017-06-11 00:00:00 2017-06-11 00:00:00 Outpatient [facility] [id number] 2017-06-06 21:54:03 2017-06-06 21:54:03 Emergency [facility] [id number] 2017-06-06 14:03:37 2017-06-06 14:03:37 Emergency [facility] [id number] 2017-05-30 00:00:00 2017-05-30 00:00:00 Outpatient [facility] [id number] 2017-05-23 08:17:34 2017-05-23 08:17:34 Outpatient [facility] [id number] 2017-05-21 00:00:00 2017-05-21 00:00:00 Emergency [facility] [id number] 2017-05-20 21:53:08 2017-05-20 21:53:08 Emergency [facility] [id number] 2017-05-17 19:03:00 2017-05-17 19:03:00 Emergency [facility] [id number] 2017-05-15 12:33:17 2017-05-15 12:33:17 Outpatient [facility] [id number] 2017-05-13 15:18:21 2017-05-13 15:18:21 Emergency [facility] [id number] 2017-05-09 00:00:00 2017-05-09 00:00:00 Outpatient [facility] [id number] 2017-05-02 09:01:03 2017-05-02 09:01:03 Outpatient [facility] [id number] 2017-05-02 00:00:00 2017-05-02 00:00:00 Outpatient [facility] [id number] 2017-04-25 00:00:00 2017-04-25 00:00:00 Outpatient [facility] [id number] 2017-04-25 00:00:00 2017-04-25 00:00:00 Outpatient [facility] [id number] 2017-04-23 11:06:16 2017-04-23 11:06:16 Outpatient [facility] [id number] 2017-04-23 10:14:57 2017-04-23 10:14:57 Outpatient [facility] [id number] 2017-04-18 10:09:03 2017-04-18 10:09:03 Outpatient [facility] [id number] 2017-04-07 20:48:30 2017-04-07 20:48:30 Emergency [facility] [id number] 2016-10-14 12:23:28 2016-10-14 12:23:28 Emergency [facility] [id number]
--- OUTSIDE RECORDS SUMMARY | 2018-02-09 23:30 | XMS REPORT | Clinical Summary ---
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 18 inhalerIndications: Tobacco abuse disorder paliperidone (INVEGA Inject 0.5 mL 0.5 mL 0 08/01/19 Active SUSTENNA) 78 mg/0.5 mL intramuscularly once for 18 Syrg 1 dose Per psychiatry takes once a month. acetaminophen-codeine Take 1 tablet by mouth 10 tablet 0 08/31/19 Active (TYLENOL/CODEINE #3) every 4 hours as needed 18 300-30 mg per for Pain. tabletIndications: Closed fracture of tooth, initial encounter naproxen (NAPROSYN) 500 Take 1 tablet by mouth 2 56 tablet 0 12/03/19 Active mg tabletIndications: times daily (with meals). 18 Polyarthralgia multivitamin Take 1 tablet by mouth 30 tablet 0 12/03/19 Active tabletIndications: daily. 18 Homelessness indomethacin (INDOCIN) 50 Take 1 capsule by mouth 2 30 capsule 0 12/06/19 Active mg capsuleIndications: times daily as needed for 18 Chronic pain of both Pain. knees cyclobenzaprine Take 1 tablet by mouth 20 tablet 0 12/06/19 Active (FLEXERIL) 10 mg nightly at bedtime as 18 tabletIndications: needed (pain). Chronic pain of both knees mirtazapine (REMERON) 15 Take 15 mg by [...] abuse disorder ciclesonide (ZETONNA) 37 Use 1 [place] in each 6.1 g 0 07/24/19 08/01/19 [...] 18 18 ued pain, right for Pain. naproxen (NAPROSYN) 375 Take 1 tablet by mouth 2 40 tablet 1 08/01/19 12/03/19 Discontin mg tabletIndications: times daily (with meals). 18 18 ued Polyarthralgia indomethacin (INDOCIN) 50 Take 1 capsule by mouth 2 30 capsule 0 08/07/19 09/06/19 Discontin mg capsuleIndications: times daily as needed for 18 18 ued Plantar fasciitis, Pain. bilateral cyclobenzaprine Take 1 tablet by mouth 20 tablet 0 08/07/19 12/06/19 Discontin (FLEXERIL) 10 mg nightly at bedtime as 18 18 ued tabletIndications: needed (pain). Plantar fasciitis, bilateral multivitamin Take 1 tablet by mouth 30 tablet 0 08/28/19 12/03/19 Discontin tabletIndications: daily. 18 18 ued Homelessness clindamycin (CLEOCIN HCL) Take 1 capsule by mouth 3 30 capsule 0 09/06/19 09/16/19 300 mg times daily for 10 days. 18 18 capsuleIndications: Dentalgia ibuprofen (MOTRIN) 600 mg Take 1 tablet by mouth 30 tablet 0 09/06/19 11/29/19 Discontin tabletIndications: every 8 hours as needed 18 18 ued Dentalgia for Pain. chlorhexidine (PERIDEX) Swish with 1/2 oz of 473 mL 0 09/06/19 09/20/19 0.12 % mouth solution in mouth for 30 18 18 washIndications: seconds and spit. Use Dentalgia twice daily.. ibuprofen (MOTRIN) 800 mg Take 1 tablet by mouth 20 tablet 0 11/29/19 12/06/19 Discontin tabletIndications: Pain every 8 hours as needed 18 18 ued in both lower extremities for Pain. Active Problems Problem Noted Date Pain in both lower extremities 11/28/2017 Hyperlipidemia 07/31/2017 Anemia 07/31/2017 Elevated LFTs 07/31/2017 Environmental allergies 07/31/2017 Tobacco abuse disorder 07/31/2017 Elbow pain, right 06/06/2017 Facial trauma 05/21/2017 Hyponatremia 05/13/2017 Screening for depression 04/23/2017 Homelessness 11/28/2015 Bipolar disorder, current episode mixed, moderate Tremors of nervous system Encounter for medical screening examination Encounters Date Type Specialty Care Team Description 12/11/2017 Clinical Case Social Work Raphael Herrera Mgboone 12/07/2017 [facility] Sonya Gong MD Chronic pain of both knees 12/07/2017 Pharmacy Visit 12/06/2017 Pharmacy Visit 12/05/2017 Office Visit Family Practice Marlon Yoder MD Chronic pain of both knees (Primary Dx) 12/05/2017 Pharmacy Visit 12/02/2017 Clinical Case Social Work Raphael Herrera Mgt 12/02/2017 Office Visit Family Practice eBny Alvarenga Physician Polyarthralgia; Homelessness 11/28/2017 Emergency Emergency Medicine Sim Parra NP Pain in both lower - extremities (Primary Dx); 11/29/2017 Encounter for medical screening examination 11/28/2017 Office Visit Family Practice Nadia Dave NP NO SHOW ENCOUNTER Sharon Rahman MD (Primary Dx) 11/26/2017 Emergency Emergency Medicine 11/05/2017 Emergency Emergency Medicine Encounter for medical screening examination 10/08/2017 Emergency Emergency Medicine - 10/09/2017 09/05/2017 Same Day [facility] Berkley Cadena NP Dentalgia (Primary Dx) Lizz Moy PA 09/05/2017 Nurse Triage Anderson Aceves RN 08/30/2017 Emergency Emergency Medicine Yvon Bee MD Closed fracture of tooth, initial encounter (Primary Dx) 08/30/2017 Pharmacy Visit 08/28/2017 Nurse Triage Anderson Aceves RN 08/27/2017 Clinical Case Social Work Aracelis Goldsmith Mgt 08/27/2017 Clinical Case Social Work Raphael Herrera Mgt 08/27/2017 Office Visit [facility] Enedelia Reis Chronic pain of both [...] Polyarthralgia; Preventative health care 07/31/2017 Orders Only [facility] Sonya Gong MD Preventative health care; Pain in both feet 07/31/2017 Pharmacy Visit 06/06/2017 Emergency Emergency Medicine Yanni Mcrae MD Elbow pain, right - (Primary Dx) 06/07/2017 05/23/2017 Office Visit [facility] Devin Patterson NP Abrasion of lip, initial encounter (Primary Dx) 05/20/2017 Emergency Emergency Medicine Chato Stallworth MD Avulsion of multiple - teeth due to trauma, 05/21/2017 initial encounter (Primary Dx); Facial injury, initial encounter 05/17/2017 Emergency Emergency Medicine - 05/18/2017 05/15/2017 Clinical Case Social Work Ailyn Mary Mgt 05/13/2017 Emergency Emergency Medicine Gerardo Glaser Tremors of nervous system ResidentMD (Primary Dx); Amos Arreaga MD Anxiety; Bipolar disorder, current episode mixed, moderate; Hyponatremia 05/09/2017 Office Visit Internal Medicine Anthony Bell ResidentMD NO SHOW ENCOUNTER (Primary Dx) 05/02/2017 Office Visit [facility] Enedelia Reis Seborrheic dermatitis, unspecified (Primary Dx); Homelessness; Healthcare maintenance 04/24/2017 Telephone Social Work Raphael Herrera Appointment Related Questions (reminder) 04/23/2017 Clinical Case Social Work Raphale Herrera Mgt 04/23/2017 Office Visit [facility] Enedelia Reis Seborrheic dermatitis, unspecified (Primary Dx); Screening for diabetes mellitus (DM); Healthcare maintenance 04/07/2017 Emergency Emergency Medicine Adina Price MD Bipolar disorder, current - episode mixed, moderate 04/08/2017 (Primary Dx) after 12/12/2016 Immunizations Name Dates Previously Given Next Due [...] Tobacco Use Types Packs/Day Years Used Date Current Every Day Smoker Cigarettes 0 9 Quit: 11/13/2015 Smokeless Tobacco: Chew Quit: Current User 11/13/2015 Tobacco Cessation: Counseling Given: No Alcohol Use Drinks/Week oz/Week Comments Yes Last time used 09/09/15 Alcohol,Beer Sex Assigned at Date Recorded Not on file Last Filed Vital Signs Vital Sign Reading Time Taken Blood Pressure 120/74 12/05/2017 3:17 PM CDT Pulse 67 12/05/2017 3:17 PM CDT Temperature 36.4 C (97.6 F) 12/05/2017 3:17 PM CDT Respiratory Rate 18 12/05/2017 3:17 PM CDT Oxygen Saturation 98% 11/29/2017 12:46 AM CDT Inhaled Oxygen - - Concentration Weight 78.5 kg (173 lb 1.6 oz) 12/05/2017 3:17 PM CDT Height 175.3 cm (5' 9") 12/05/2017 3:17 PM CDT Body Mass Index 25.56 12/05/2017 3:17 PM CDT Plan of Treatment Date Type Specialty Care Team Description 12/24/2017 Office Visit Family Practice Enedelia Reis RTN F/[address] [place] [address] [phone] Goals Patient Goal Type Goal Recent Progress Patient-Stat Author ed? Weight Weight (lb) < 200 lb 78.5 kg (173 lb 1.6 oz) No Estela Weber (90.7 kg) (12/05/2017 3:17 PM CDT) [facility] Procedures Procedure Name Priority Date/Time Associated Diagnosis Comments BMP POC Routine 11/05/2017 Results for this 3:57 AM CDT procedure are in the results section. XRAY ELBOW 2 VIEWS MIN STAT 06/06/2017 Elbow pain, right Results for this 2:15 PM [facility] procedure are in the results section. CT MAXILLOFACIAL W/O STAT 05/21/2017 Facial injury, initial Results for this CONTRAST 1:00 AM [facility] encounter procedure are in the results section. BASIC METABOLIC PANEL STAT 05/13/2017 Results for this 7:00 PM [facility] procedure are in the results section. BMP POC Routine 05/13/2017 Results for this 12:30 PM [facility] procedure are in the results section. CBC/DIFF Routine 05/13/2017 Results for this 12:20 PM [facility] procedure are in the results section. POC GLUCOSE-FQHC MANUALLY Routine 04/23/2017 Screening for diabetes Results for this ENTERED 10:59 AM [facility]OC[facility]IER mellitus (DM) procedure are in the results section. URINE DRUG SCREEN STAT 04/07/2017 Results for this 9:07 PM [facility] procedure are in the results section. UA CHEMISTRIES STAT 04/07/2017 Results for this 9:07 PM [facility] procedure are in the results section. after 12/12/2016 Results * BMP POC (11/05/2017 3:57 AM) Only the most recent of 2 results within the time period is included. CO2 POC 28 21 - 32 mmol/L [facility] Chloride POC 94 (L) 98 - 107 mmol/L [facility] 1 Potassium POC 3.5 3.50 - 5.10 mmol/L [facility] 1 Sodium POC 134 (L) 136 - 145 mmol/L [facility] 1 Glucose POC 133 (H) 74 - 106 mg/dL [facility] 1 Urea Nitrogen POC 4 (L) 7 - 18 mg/dL [facility] 1 Creatinine POC 0.9 0.6 - 1.3 mg/dL [facility] 1 Calcium Ionized POC 1.16 1.15 - 1.29 mmol/L [facility] 1 Hemoglobin POC 14.3 14.0 - 18.0 g/dL [facility] 1 Hematocrit POC 42.0 40.0 - 54.0 % [facility] 1 GFR, Estimated >60 mL/min/1.73 m2 [facility] 1 GFR, Estim, Afr-Am >60 mL/min/1.73 m2 [facility] 1 Performing Organization Address City/State/Zipcode Phone Number [facility] * XRAY ELBOW 2 VIEWS MIN (06/06/2017 2:15 PM) Impressions Performed At IMPRESSION: SMS There is a joint effusion without definite bony fracture. Follow up elbow series would be of benefit. If the report is "FINALIZED" it indicates that the attending/staff radiologist has reviewed the images and agrees with the resident's interpretation. I have reviewed the study and agree with the findings in this report. Signed By: Eric Cabezas DO, 06/06/2017 2:43 PM Narrative Performed At EXAMINATION: XRAY ELBOW 2 VIEWS MIN SMS SIDE: Right INDICATION: R elbow pain COMPARISON: None FINDINGS: BONES: No acute fracture.Spurring of the olecranon. JOINTS: No malalignment. SOFT TISSUES: Uplifted anterior fat pad c/w an effusion. Procedure Note Interface, Rad/Mammog In - 06/06/2017 2:48 PM [facility] EXAMINATION: XRAY ELBOW 2 VIEWS MIN SIDE: [...] By: Eric Cabezas DO, 06/06/2017 2:43 PM Performing Organization Address City/State/Zipcode Phone Number SMS * CT MAXILLOFACIAL W/O CONTRAST (05/21/2017 1:00 AM) Impressions Performed At IMPRESSION: SMS 1.Tiny age-indeterminate left nasal fracture. 2.Multiple untreated dental caries. 3.Impacted right maxillary third molar. This [facility] radiology report is a preliminary resident dictation until finalized by an attending.Changes to this preliminary report may occur in an additional preliminary or finalized version. Dictated By: Jann Reyes MD, 05/21/2017 1:29 AM I have reviewed the study and agree with the findings in this report. Signed By: Sim Friedman MD, 05/21/2017 1:46 AM Narrative Performed At EXAM: CT FACIAL BONES WITHOUT CONTRAST [facility] DATE: 05/21/2017 1:01 AM INDICATION: Facial trauma [...] Interface, Rad/Mammog In - 05/21/2017 1:51 AM [facility] EXAM: CT FACIAL BONES WITHOUT CONTRAST DATE: [...] 3. Impacted right maxillary third molar. This [facility] radiology report is a preliminary resident dictation until finalized by an attending. Changes to this preliminary report may occur in an additional preliminary or finalized version. Dictated By: Jann Reyes MD, 05/21/2017 1:29 AM I have reviewed the study and agree with the findings in this report. Signed By: Sim Friedman MD, 05/21/2017 1:46 AM Performing Organization Address City/State/Zipcode Phone Number SMS * BASIC METABOLIC PANEL (05/13/2017 7:00 PM) CO2 26.8 21 - 32 mmol/L [facility] 3 Chloride 97 (L) 98 - 107 mmol/L [facility] 3 Potassium 3.8 3.50 - 5.10 mmol/L [facility] 3 Sodium 132 (L) 136 - 145 mmol/L [facility] 3 Glucose 132 (H) 70 - 99 mg/dL [facility] 3 Urea Nitrogen 10 7 - 18 mg/dL [facility] 3 Creatinine 0.89 0.60 - 1.30 mg/dL [facility] 3 Anion Gap 8.2 [facility] 3 Calcium 8.7 8.50 - 10.20 mg/dL [facility] 3 GFR, Estimated >60 mL/min/1.73 m2 [facility] 3 GFR, Estim, Afr-Am >60 mL/min/1.73 m2 [facility] 3 Specimen Blood Performing Organization Address City/State/Zipcode Phone Number [facility] * CBC/DIFF (05/13/2017 12:20 PM) WBC 9.5 4.5 - 12.0 K/uL [facility] 2 RBC 4.24 (L) 4.60 - 6.20 M/uL [facility] 2 Hemoglobin 13.3 (L) 14.0 - 18.0 g/dL [facility] 2 Hematocrit 38.4 (L) 40.0 - 54.0 % [facility] 2 MCV 91 82 - 92 fL [facility] 2 MCH 31.4 (H) 27.0 - 31.0 pg [facility] 2 MCHC 34.6 32.0 - 36.0 g/dL [facility] 2 RDW 39.9 35.1 - 43.9 fL [facility] 2 Platelet 266 150 - 400 K/uL [facility] 2 Mean Platelet Volume 8.6 (L) 9.4 - 12.4 fL [facility] 2 Percent NRBC 0.0 [facility] 2 Absolute NRBC 0.00 [facility] 2 Neutrophil 70.9 (H) 34.0 - 67.9 % [facility] 2 Lymphocyte 19.1 (L) 21.8 - 50.0 % [facility] 2 Monocyte 8.9 5.3 - 12.0 % [facility] 2 Eosinophil 0.3 (L) 0.8 - 5.0 % [facility] 2 Basophil 0.4 0.2 - 1.2 % [facility] 2 Pct Immat Gran 0.4 0.0 - 0.5 [facility] 2 Neutrophil, Abs 6.74 (H) 1.78 - 5.36 K/uL [facility] 2 Lymphocyte, Abs 1.82 1.32 - 3.57 K/uL [facility] 2 Monocyte, Abs 0.85 (H) 0.30 - 0.82 K/uL [facility] 2 Eosinophil, Abs 0.03 (L) 0.04 - 0.54 K/uL [facility] 2 Basophil, Abs 0.04 0.01 - 0.08 K/uL [facility] 2 Absol Immat Gran 0.04 (H) 0.00 - 0.03 K/uL [facility] 2 Performing Organization Address [facility] Phone Number [facility] * POC GLUCOSE-FQHC MANUALLY ENTERED (04/23/2017 10:59 AM) GLUCOSE 91 Specimen Blood * UA CHEMISTRIES (04/07/2017 9:07 PM) Color Colorless [facility] 4 Clarity Clear [facility] 4 Spec [place]man 1.002 1.001 - 1.035 [facility] 4 pH 7.0 5 - 8 [facility] 4 Protein Negative NEG [facility] 4 Glucose Negative NEG [facility] 4 Ketone Negative NEG [facility] 4 Bilirubin Negative NEG [facility] 4 Nitrate Negative NEG [facility] 4 Urobilinogen <1.0 0.2 - 1.0 EU/dL [facility] 4 Leukocyte Negative NEG [facility] 4 Blood Negative NEG [facility] 4 Specimen Urine Performing Organization Address [facility] Phone Number [facility] * URINE DRUG SCREEN (04/07/2017 9:07 PM) Amphetamine Negative NEG [facility] 4 Comment: Calibrated Standard: D-Methamphetamine Positive if urine level >qq=6636 ng/mL Barbiturate Negative NEG [facility] 4 Comment: Calibrated Standard: Secobarbital Positive if urine level is >pb=764 ng/mL Benzodiazepine Negative NEG [facility] 4 Comment: Calibrated Standard: Lormethazepam Positive if urine level is >ip=978 ng/mL Cannabinoid Negative NEG [facility] 4 Comment: Calibrated Standard: 11 nor-delta(9)-THC carboxylic a Positive if urine level >or=50 Cocaine Negative NEG [facility] 4 Comment: Calibrated Standard: Benzoylecgonine Positive if urine level >wt=923 Opiate, Ur Negative NEG [facility] 4 Comment: Calibrated Standard: Morphine Positive if urine level >ki=493 PCP Negative NEG [facility] 4 Comment: Calibrated Standard: Phencyclidine Positive if urine level >or=25 Urine Toxicology Screen results are to be used only for Medical purposes. Specimen Urine Performing Organization Address City/State/Zipcode Phone Number [facility] 4 after 12/12/2016
--- OUTSIDE RECORDS SUMMARY | 2018-02-09 23:30 | XMS REPORT | Clinical Summary ---
Author Author [facility] Organization [facility] Address Unknown Phone Unavailable Care Team Providers Care Draw End Hand Name Role Phone Sonya Gong MD PCP [...] abuse disorder ciclesonide (ZETONNA) 37 Use 1 [place] in each 6.1 g 0 08/01/19 Active [...] fracture of tooth, initial encounter ibuprofen (MOTRIN) 800 mg Take 1 tablet by mouth 20 tablet 0 11/29/19 Active tabletIndications: Pain every 8 hours as needed 18 in both lower extremities for Pain. mirtazapine (REMERON) 15 Take 15 [...] abuse disorder ciclesonide (ZETONNA) 37 Use 1 [place] in each 6.1 g 0 07/24/19 08/01/19 [...] twice daily.. Active Problems Problem Noted Date Pain in both lower extremities 11/28/2017 Hyperlipidemia 07/31/2017 Anemia 07/31/2017 Elevated LFTs 07/31/2017 Environmental allergies 07/31/2017 Tobacco abuse disorder 07/31/2017 Elbow pain, right 06/06/2017 Facial trauma 05/21/2017 Hyponatremia 05/13/2017 Screening for depression 04/23/2017 Homelessness 11/28/2015 Bipolar disorder, current episode mixed, moderate Tremors of nervous system Encounter for medical screening examination Encounters Date Type Specialty Care Team Description 11/28/2017 Emergency Emergency Medicine Sim Parra NP [...] Work Raphael Herrera Mgt 08/27/2017 Office Visit [facility] Enedelia Reis Chronic pain of both knees (Primary Dx); Homelessness 08/15/2017 Pharmacy Visit 08/08/2017 Emergency Emergency Medicine - 08/09/2017 08/07/2017 Telephone Chloe Jaffe Pre-clinic Chart Review; Transportation 08/06/2017 Office Visit [facility] Marlon Yoder MD Plantar fasciitis, bilateral (Primary Dx) 08/06/2017 Emergency Emergency Medicine Letty Saenz PA 08/06/2017 Pharmacy Visit 08/01/2017 Pharmacy Visit 07/31/2017 Office Visit [facility] Sonya Gong MD Elevated LFTs (Primary Dx); Anemia, unspecified type; Hyperlipidemia, unspecified hyperlipidemia type; Tobacco abuse disorder; Environmental allergies; Chronic pain of right knee; Pain in both feet; Polyarthralgia; Preventative health care 07/31/2017 Orders Only [facility] Sonya Gong MD Preventative health care; Pain in both feet 07/31/2017 Pharmacy Visit 06/06/2017 Emergency Emergency Medicine Yanni Mcrae MD Elbow pain, right - (Primary Dx) 06/07/2017 05/23/2017 Office Visit [facility] Devin Patterson NP Abrasion [...] SHOW ENCOUNTER (Primary Dx) 05/02/2017 Office Visit [facility] Enedelia Reis Seborrheic dermatitis, unspecified (Primary Dx); Homelessness; Healthcare maintenance 04/24/2017 Telephone Social Work Raphael Herrera Appointment Related Questions (reminder) 04/23/2017 Clinical Case Social Raphael Kelly Mgt 04/23/2017 Office Visit Family Practice Enedelia Reis Seborrheic dermatitis, unspecified (Primary Dx); Screening for diabetes mellitus (DM); Healthcare maintenance 04/07/2017 Emergency Emergency Medicine Adina Price MD Bipolar disorder, current - episode mixed, moderate 04/08/2017 (Primary Dx) after 11/28/2016 Immunizations Name Dates Previously Given Next Due [...] Vital Sign Reading Time Taken Blood Pressure 122/76 11/29/2017 12:46 AM CDT Pulse 78 11/29/2017 12:46 AM CDT Temperature 36.7 C (98.1 F) 11/29/2017 12:46 AM CDT Respiratory Rate 16 11/29/2017 12:46 AM CDT Oxygen Saturation 98% 11/29/2017 12:46 AM CDT Inhaled Oxygen - - Concentration Weight 82.6 kg (182 lb) 09/05/2017 4:21 PM CDT Height 175.3 cm (5' 9") 09/05/2017 4:21 PM CDT Body Mass Index 26.88 09/05/2017 4:21 PM CDT Plan of Treatment Not on file Goals Patient Goal Type Goal Recent Progress Patient-Stat Author ed? Weight Weight (lb) < 200 lb 82.6 kg (182 lb) Estela Duarte (90.7 kg) (09/05/2017 4:21 PM CDT) [facility] Procedures Procedure Name Priority Date/Time Associated Diagnosis Comments BMP POC Routine 11/05/2017 Results for this 3:57 AM CDT procedure are in the results section. XRAY ELBOW 2 VIEWS MIN STAT 06/06/2017 Elbow pain, right Results for this 2:15 PM [facility] procedure are in the results section. CT MAXILLOFACIAL W/O STAT 05/21/2017 Facial injury, initial Results for this CONTRAST 1:00 AM [facility] encounter procedure are in the results section. BASIC METABOLIC PANEL STAT 05/13/2017 Results for this 7:00 PM [facility] procedure are in the results section. BMP POC Routine 05/13/2017 Results for this 12:30 PM [facility] procedure are in the results section. CBC/DIFF Routine 05/13/2017 Results for this 12:20 PM [facility] procedure are in the results section. POC GLUCOSE-FQHC MANUALLY Routine 04/23/2017 Screening for diabetes Results for this ENTERED 10:59 AM [facility] mellitus (DM) procedure are in the results section. URINE DRUG SCREEN STAT 04/07/2017 Results for this 9:07 PM [facility] procedure are in the results section. UA CHEMISTRIES STAT 04/07/2017 Results for this 9:07 PM [facility] procedure are in the results section. after 11/28/2016 Results * BMP POC (11/05/2017 3:57 AM) [...] findings in this report. Signed By: Eric Sheldonighmitesh GARCIA, 06/06/2017 2:43 PM Narrative Performed At EXAMINATION: XRAY ELBOW 2 VIEWS MIN SMS SIDE: Right INDICATION: R elbow pain COMPARISON: None FINDINGS: BONES: No acute fracture.Spurring of the olecranon. JOINTS: No malalignment. SOFT TISSUES: Uplifted anterior fat pad c/w an effusion. Procedure Note Interface, Rad/Mammog In - 06/06/2017 2:48 PM [facility] EXAMINATION: XRAY ELBOW 2 VIEWS MIN SIDE: [...] caries. 3.Impacted right maxillary third molar. This [place] [...] At EXAM: CT FACIAL BONES WITHOUT CONTRAST [facility] DATE: 05/21/2017 1:01 AM INDICATION: Facial trauma [...] Interface, Rad/Mammog In - 05/21/2017 1:51 AM [facility] EXAM: CT FACIAL BONES WITHOUT CONTRAST DATE: [...] MD, 05/21/2017 1:46 AM Performing Organization Address [facility] Phone Number SMS * BASIC METABOLIC PANEL [...] MAIN-STATION 3 Specimen Blood Performing Organization Address [facility] Phone Number MISYS BT MAIN-STATION 3 * CBC/DIFF (05/13/2017 12:20 PM) [...] K/uL BT MAIN-STATION 2 Performing Organization Address [facility]n Phone Number MISYS BT MAIN-STATION 2 * POC GLUCOSE-FQHC MANUALLY ENTERED (04/23/2017 10:59 AM) GLUCOSE 91 Specimen Blood * UA CHEMISTRIES (04/07/2017 9:07 PM) Color Colorless BT MAIN-STATION 4 Clarity Clear BT MAIN-STATION 4 Spec [place] 1.002 1.001 - 1.035 BT MAIN-STATION 4 [...] MAIN-STATION 4 Specimen Urine Performing Organization Address [facility] Phone Number MISYS BT MAIN-STATION 4 * URINE DRUG SCREEN (04/07/2017 9:07 PM) Amphetamine Negative NEG BT MAIN-STATION 4 Comment: Calibrated Standard: D-Methamphetamine Positive if urine level >ix=6617 ng/mL Barbiturate Negative NEG BT MAIN-STATION 4 Comment: Calibrated Standard: Secobarbital Positive if urine level is >vo=426 ng/mL Benzodiazepine Negative NEG BT MAIN-STATION 4 Comment: Calibrated Standard: Lormethazepam Positive if urine level is >wm=570 ng/mL Cannabinoid Negative NEG BT MAIN-STATION 4 Comment: Calibrated Standard: 11 nor-delta(9)-THC carboxylic a Positive if urine level >or=50 Cocaine Negative NEG BT MAIN-STATION 4 Comment: Calibrated Standard: Benzoylecgonine Positive if urine level >vk=894 Opiate, Ur Negative NEG BT MAIN-STATION 4 Comment: Calibrated Standard: Morphine Positive if urine level >mc=257 PCP Negative NEG BT MAIN-STATION 4 Comment: Calibrated Standard: Phencyclidine Positive if urine level >or=25 Urine Toxicology Screen results are to be used only for Medical purposes. Specimen Urine Performing Organization Address City/State/Zipcode Phone Number MISYS BT MAIN-STATION 4 after 11/28/2016
== END 2018-02-10 03:42 | disposition left against medical advice (07) ==
LOC: ER 23:26
DX: L03.032 Cellulitis of left toe (principal)

== ENCOUNTER 2021-11-06 18:30 | Emergency (ER) | payer SELFPAY | END 2021-11-06 18:55 | disposition left against medical advice (07) | LOC: ER 18:36 | DX: R52 Pain, unspecified (principal) ==

== ENCOUNTER 2022-01-21 12:23 | Emergency (ER) | payer SELFPAY ==
[~2022-01-21] VITALS: Ht 177.8 cm; Wt 62.6 kg
== END 2022-01-21 15:13 | disposition home or self-care (01) ==
LOC: ER 12:27 → MERGE 12:27 → ER 15:13
DX: M25.551 Pain in right hip (principal); G89.29 Other chronic pain; Z59.00 Homelessness unspecified
CPT/HCPCS: 99282